=== PATIENT | male | born 1945 | race American Indian/Alaskan Native ===

== ENCOUNTER 2016-12-05 11:18 | Inpatient (IN) | payer MEDICARE ==
[2016-12-05] MEDS ORDERED: NACL 0.9% 1000 ML 1,000 ML IV ONE (11:47)
[2016-12-05 12:03] LABS: Basophils % (Auto) 0.4 % (0.0-1.8); Eosinophils % (Auto) 0.9 % (0.0-4.3); Hematocrit 37.5 % (35.5-45.6); Hemoglobin 11.8 gm/dl (11.8-15.2); Mean Corpuscular HGB Conc 31 % (32-34); Mean Corpuscular Hemoglobin 27 pg (28-32); Mean Corpuscular Volume 87 fl (84-94); Platelet Count 211 K/mm3 (140-440); Red Blood Count 4.33 M/mm3 (3.65-5.03); Red Cell Distribution Width 14.6 % (13.2-15.2); White Blood Count 6.9 K/mm3 (4.5-11.0)
[2016-12-05] MEDS ORDERED: NACL ONE (12:05)
--- NOTE | 2016-12-05 12:13 | XRay Report ---
Single view chest: History: Chest pain. Findings: Normal cardiomediastinal silhouette. Trachea is midline. No consolidation, pneumothorax or pleural effusion. Impression: No acute cardiopulmonary findings.
[2016-12-05 12:17] LABS: Alanine Aminotransferase 30 units/L (7-56); Albumin 3.8 g/dL (3.9-5); Alkaline Phosphatase 69 units/L (35-129); Anion Gap 20 mmol/L; BUN/Creatinine Ratio 21.81; Blood Urea Nitrogen 24 mg/dL (9-20); Calcium 9.3 mg/dL (8.4-10.2); Carbon Dioxide 24 mmol/L (22-30); Chloride 97.9 mmol/L (98-107); Glucose 171 mg/dL (75-100); Sodium 139 mmol/L (137-145); Total Protein 7.7 g/dL (6.3-8.2)
--- NOTE | 2016-12-05 12:26 | Emergency Department Report ---
ED Syncope HPI - General Chief Complaint: Nausea/Vomiting/Diarrhea Stated Complaint: EMESIS Time Seen by Provider: 12/05/16 11:45 Source: family - History of Present Illness Timing/Prior Episodes: no prior history Precipitating Factors: Positive: diaphoresis, lightheadedness, nausea. Negative : blurred vision, confusion, injury, pain, recent head trauma, rapid heart beat Loss of Consciousness: brief (seconds) Current Symptoms: back to normal, diaphoresis, dizziness, lightheadedness, nausea, weakness. denies: blurred vision, chest pain, headache, injury, loss of bladder control, loss of bowel control, motionless, pale, shallow/rapid breathing, weak/absent pulse - Related Data Allergies/Adverse Reactions: Allergies LUIS MIGUEL Inhibitors Adverse Reaction (Severe, Unverified 03/28/16 05:49) SEVERE LIP SWELLING IV CONTRAST DYE Adverse Reaction (Uncoded 03/28/16 05:49) Hives Home Medications: Ambulatory Orders Amlodipine Bes/Olmesartan Med [Jd 10-40 mg] 1 tab PO DAILY 03/28/16 Aspirin EC [Aspirin Enteric Coated TAB] 81 mg PO DAILY 03/28/16 Atenolol 100 mg PO BID 03/28/16 Bimatoprost 0.01%(Nf) [Lumigan 0.01%(Nf)] 1 drop INTRAOCULA DAILY 03/28/16 Brimonidine Tartrate [Alphagan P 0.1%] 1 drop INTRAOCULA BID 03/28/16 Clonidine HCl 0.3 mg PO BID 03/28/16 Olmesartan/Hydrochlorothiazide [Benicar HCT 20-12.5 mg] 1 tab PO DAILY 03/28/16 Tamsulosin HCl 0.4 mg PO DAILY 03/28/16 hydrALAZINE [Apresoline TAB] 100 mg PO TID 03/28/16 AtorvaSTATin [Lipitor] 40 mg PO QHS 12/05/16 Clopidogrel [Plavix] 75 mg PO QDAY 12/05/16 Metoprolol Xl [Metoprolol SUCCINATE ER TAB] 25 mg PO Q12H 12/05/16 Sitagliptin Phos/Metformin HCl [Janumet 50-500 mg Tablet] 1 each PO BID ED Review of Systems ROS: Stated complaint: EMESIS Other details as noted in HPI Comment: All other systems reviewed and negative ED Past Medical Hx - Past Medical History Previous Medical History?: Yes Hx Hypertension: Yes Hx CVA: Yes Hx Heart Attack/AMI: Yes (6 months ago) Hx Diabetes: Yes (diabetic oral medication) Hx of Cancer: Yes (prostate cancer) Hx Arthritis: Yes Hx HIV: No Additional medical history: radiation treatment 3 months ago - Surgical History Past Surgical History?: No - Social History Smoking Status: Never Smoker Substance Use Type: None - Medications Home Medications: Home Medications Medication Instructions Recorded Confirmed Last Taken Type Amlodipine Bes/Olmesartan Med 1 tab PO DAILY 03/28/16 12/05/16 12/05/16 History [Jd 10-40 mg] Aspirin EC [Aspirin Enteric Coated 81 mg PO DAILY 03/28/16 12/05/16 12/05/16 History TAB] Atenolol 100 mg PO BID 03/28/16 12/05/16 12/05/16 History Bimatoprost 0.01%(Nf) [Lumigan 1 drop INTRAOCULA DAILY 03/28/16 12/05/16 History 0.01%(Nf)] 1 drop Brimonidine Tartrate [Alphagan P 1 drop INTRAOCULA BID 03/28/16 12/05/16 History 0.1%] 1 drop Clonidine HCl 0.3 mg PO BID 03/28/16 12/05/16 12/05/16 History Olmesartan/Hydrochlorothiazide 1 tab PO DAILY 03/28/16 12/05/16 12/05/16 History [Benicar HCT 20-12.5 mg] Tamsulosin HCl 0.4 mg PO DAILY 03/28/16 12/05/16 12/05/16 History hydrALAZINE [Apresoline TAB] 100 mg PO TID 03/28/16 12/05/16 12/04/16 History AtorvaSTATin [Lipitor] 40 mg PO QHS 12/05/16 12/05/16 12/04/16 History Clopidogrel [Plavix] 75 mg PO QDAY 12/05/16 12/05/16 12/05/16 History Metoprolol Xl [Metoprolol 25 mg PO Q12H 12/05/16 12/05/16 12/05/16 History SUCCINATE ER TAB] Sitagliptin Phos/Metformin HCl 1 each PO BID 12/05/16 12/05/16 12/05/16 History [Janumet 50-500 mg Tablet] ED Physical Exam - General Limitations: No Limitations General appearance: alert, in no apparent distress - Head Head exam: Present: atraumatic, normocephalic - Eye Eye exam: Present: normal appearance, PERRL - ENT ENT exam: Present: normal exam, normal orophraynx, mucous membranes moist - Neck Neck exam: Present: normal inspection - Respiratory Respiratory exam: Present: normal lung sounds bilaterally, respiratory distress , rhonchi, decreased breath sounds - Cardiovascular Cardiovascular Exam: Present: regular rate, normal rhythm. Absent: systolic murmur, diastolic murmur, rubs, gallop - GI/Abdominal GI/Abdominal exam: Present: soft, normal bowel sounds - Rectal Rectal exam: Present: deferred - Extremities Exam Extremities exam: Present: normal inspection - Back Exam Back exam: Present: normal inspection - Neurological Exam Neurological exam: Present: alert, oriented X3 - Psychiatric Psychiatric exam: Present: normal affect, normal mood - Skin Skin exam: Present: warm, dry, intact, normal color. Absent: rash ED Course Vital Signs 12/05/16 12/05/16 13:00 13:03 Temperature 97.8 F Pulse Rate 69 Respiratory 24 24 Rate Blood Pressure 122/68 [Right] O2 Sat by Pulse 96 96 Oximetry ED Medical Decision Making - Lab Data Result diagrams: 12/05/16 11:41 12/05/16 11:41 - EKG Data -: EKG Interpreted by Me - EKG Data Interpretation: no acute changes - Radiology Data Radiology results: report reviewed, image reviewed - Medical Decision Making will need admission for respiratory distress, cxr negative , V/Q scan negative for PE/ althoug lovenox given , cultures ordered and abx given , with normal WBC , extensive cardiac history will need cardiology. Critical Care Time: Yes Critical care time in (mins) excluding proc time.: 35 Critical care attestation.: If time is entered above; I have spent that time in minutes in the direct care of this critically ill patient, excluding procedure time. ED Disposition Clinical Impression: Coronary angioplasty status, Respiratory distress, Pneumonia, Syncope Disposition: OP ADMIT IP TO THIS HOSP Is pt being admited?: Yes Does the pt Need Aspirin: No Condition: Fair Time of Disposition: 15:47
[2016-12-05 12:42] LABS: INR 0.97 (0.87-1.13)
[2016-12-05 12:43] LABS: Partial Thromboplastin Time < 20.0 Sec. (24.2-36.6)
[2016-12-05 12:59] LABS: Urine Drugs of Abuse Note Disclamer
[2016-12-05 13:08] LABS: Bilirubin,Urine NEG (Negative); Blood,Urine NEG (Negative); Ketones,Urine NEG (Negative); Leukocyte Esterase,Urine NEG (Negative); Mucus,Urine FEW /HPF; Nitrite,Urine NEG (Negative); Protein,Urine <15 mg/dL mg/dL (Negative); Urobilinogen,Urine < 2.0 mg/dL (<2.0)
--- NOTE | 2016-12-05 13:18 | Admit Criteria Form ---
Admission Criteria Documentation: GENERAL ADMISSION CRITERIA (Place 'X' for any and all applicable criteria): Admission is indicated for ANY ONE of the following: [ X]I. Hemodynamic instability as indicated by ANY ONE of the following(1)(2 )(3)(4)(5): [ ]a) Vital sign abnormality not readily corrected by appropriate treatment within 12 to 24 hours indicated by ANY ONE of the following: [ ]i) Hypotension [ ]ii) Symptomatic Tachycardia unresponsive to treatment (eg , analgesia, fluids, sedation as indicated) [ ]iii) Orthostatic vital sign changes unresponsive to treatment (eg, fluids) [ X]b) Vital sign abnormality that is severe indicated by ANY ONE of the following: [X]i) Inadequate perfusion indicated by ANY ONE of the following: [ X]1) Lactic acidosis (greater than 2 mmol/L) [ ]2) New abnormal capillary refill (greater than 3 seconds) [ ]3) Other metabolic acidosis (arterial pH less than 7.35) not otherwise explained [ ]4) Reduced urine output [ ]5) Altered mental status [ ]6) Myocardial Ischemia [ ]v) Mean arterial pressure[A] less than 60 mm Hg [ ]vi) Mean arterial pressure[A] less than 70 mm Hg after 30 minutes of appropriate treatment (eg, fluid resuscitation) [ ]vii) IV inotropic or vasopressor medication required to maintain adequate blood pressure or perfusion [ ]viii) Sustained heart rate greater than 120 beats per minute in adult or child 6 years or older[B]] [ ]II. Hypertension requiring inpatient treatment as indicated by ANY ONE of the following(6)(7)(8): [ ]a) SBP greater than 220 mm Hg or DBP greater than 120 mm Hg despite treatment [ ]b) SBP greater than 140 mm Hg or DBP greater than 100 mm Hg with evidence of acute end organ damage as indicated by ANY ONE of the following: [ ]i) Encephalopathy [ ]ii) Acute renal failure as indicated by new onset of ANY ONE of the following(9)(10)(11)(12)(13): [ ]1) A 3-fold rise in serum creatinine from baseline [ ]2) Serum creatinine greater than 4 mg/dL ( 354 micromoles/L) with acute rise greater than 0.5 mg/dL (44.2 micromoles/L) [ ]3) Reduction of more than 75% in estimated glomerular filtration rate from baseline [ ]4) Estimated glomerular filtration rate less than 35 mL/min/1.73m2 (0.59 mL/sec/1.73m2) in child up to 18 years of age [ ]5) Cessation of urine output indicated by ALL of the following: [ ]A. Adequate volume status [ ]B. Inadequate urine output as indicated by ANY ONE of the following: [ ]a. Urine output less than 0.3 mL/kg/hr for 24 hours [ ]b. Anuria (urine output less than 0.1 mL/kg/hr) for 12 hours [ ]iii) Aortic dissection [ ]iv) Myocardial ischemia [ ]v) Left ventricular heart failure [ ]vi) Retinal hemorrhage [ ]vii) Other significant finding [ ]c) Hypertension in child requiring inpatient treatment as indicated by ALL of the following(14)(15)(16): [ ]i) Outpatient treatment not effective, not available, or not appropriate [ ]ii) SBP or DBP greater than 95th percentile for age [ ]iii) Evidence of acute end organ damage as indicated by ANY ONE of the following: [ ]1) Altered mental status [ ]2) Acute renal failure as indicated by new onset of ANY ONE of the following(9)(10)(11)(12)(13): [ ]A. A 3-fold rise in serum creatinine from baseline [ ]B. Serum creatinine greater than 4 mg/dL (354 micromoles/L) with acute rise greater than 0.5 mg/dL (44.2 micromoles/L) [ ]C. Reduction of more than 75% in estimated glomerular filtration rate from baseline [ ]D. Estimated glomerular filtration rate less than 35 mL/min/1.73m2 (0.59 mL/sec/1.73m2)in child up to 18 years of age [ ]E. Cessation of urine output indicated by ALL of the following: [ ]a. Adequate volume status [ ]b. Inadequate urine output as indicated by ANY ONE of the following: [ ]1) Urine output less than 0.3 mL/kg/hr for 24 hours [ ]2) Anuria (urine output less than 0.1 mL/kg/hr) for 12 hours [ ]3) Severe headache [ ]4) Visual disturbance [ ]5) Retinal hemorrhage [ ]6) Other significant finding [ ]III. Acute cardiac or peripheral ischemia as indicated by ANY ONE of the following: [ ]a) Acute coronary syndrome(17)(18) [ ]b) Acute peripheral ischemia (eg, pulseless, cool, mottled, or cyanotic extremity)(19) [ ]IV. Cardiac arrhythmias or findings of immediate concern indicated by ANY ONE of the following(20)(21): [ ]a) Heart rhythms that are inherently dangerous or unstable indicated by ANY ONE of the following(22)(23)(24): [ ]i) Resuscitated ventricular fibrillation or cardiac arrest [ ]ii) Ventricular escape rhythm [ ]iii) Sustained ventricular tachycardia (30 seconds or more of ventricular rhythm at greater than 100 beats per minute) [ ]iv) Nonsustained ventricular tachycardia and ANY ONE of the following: [ ]1) Suspected cardiac ischemia as cause or consequence of ventricular tachycardia [ ]2) In setting of acute myocarditis [ ]b) Unstable cardiac conduction defects indicated by ANY ONE of the following(24)(25)(26): [ ]i) Type II second-degree atrioventricular block [ ]ii) Third-degree atrioventricular block [ ]iii) New-onset left bundle branch block with suspected myocardial ischemia [ ]c) Any heart rhythm and ANY ONE of the following(22)(23)(27)(28)( 29): [ ] i) Continuous long-term ECG monitoring needed (eg, initiation of drug requiring monitoring for more than 24 hours) [ ] ii) Patient has automatic implanted cardioverter defibrillator that is repeatedly firing, malfunctioning, or in need of immediate adjustment of settings beyond the scope of ambulatory or observation care. [ ]d) Heart rhythms of concern due to ANY ONE of the following: [ ]i) Hypotension [ ]ii) Respiratory distress [ ]iii) Association with other significant symptoms (eg, bradycardia with syncope or ongoing dizziness, supraventricular tachycardia with chest pain) (27)(28) (30) [ ] V. Severe heart failure as indicated by ANY ONE of the following ( 31)(32): [ ]a) Respiratory distress [ ]b) Hypotension [ ]c) Anasarca (refractory to outpatient therapy) [ ]d) Cardiac arrhythmias of immediate concern [ ]e) Myocardial ischemia [ ]. Respiratory abnormalities, including ANY ONE of the following(33)(34) (35)(36): [ ]a) Respiratory rate greater than 30 breaths per minute unresponsive to treatment [A] [ ]b) New saturation of arterial oxygen less than 90% [ ]c) New partial pressure of carbon dioxide greater than 44 mm Hg ( 5.9 kPa) [ ]d) Supplemental oxygen or respiratory treatments needed that are new or not performable at other levels of care [ ]e) New-onset cyanosis [ ]f) Inability to protect airway [ ]g) Chronic lung disease with severe deterioration (not responsive to emergency and observation care treatment as appropriate) as indicated by ANY ONE of the following(34)(36 ): [ ]i) SaO2 5% below baseline in patient with chronic hypoxemia [ ]ii) New requirement for supplemental oxygen to keep SaO2 at baseline or acceptable level [ ]iii) Required supplemental oxygen performable only in acute inpatient setting [ ]iv) Severe airflow or ventilation abnormalities [ ]v) Previously mobile patient unable to walk between rooms [ ]vi Inability to eat or sleep due to dyspnea [ ]vii) Rapid rate of exacerbation onset [ ]viii) Altered mental status ]VII. Severe airflow or ventilation abnormalities (not responsive to emergency and observation care treatment as appropriate) as indicated by ANY ONE of the following(33)(34)(35)(37): [ ]a) PCO2 greater than 42 mm Hg (5.6 kPa) and pH less than 7.35 (new ) [ ]b) Documented PCO2 increased more than 5 mm Hg (0.7 kPa) from disease baseline [ ]c) Airflow measurements [B] less than 60% of previous best or predicted (eg, peak expiratory flow rate less than 300 L/minute) despite intensive emergent treatment [C] [ ]d) Required respiratory treatments that are performable only in acute inpatient setting [ ]VIII. Impending or actual respiratory arrest ( Also use Respiratory Failure GRG for severe respiratory disease and long-term mechanical ventilation patients) [ ]IX. Neurologic abnormalities, including ANY ONE of the following: [ ]a) New findings that suggest ANY ONE of the following: [ ]i) TELEVISION E[employer]MENT [employer]ATOR infection(38) [ ]ii) Cerebral bleeding, ischemia, or vasospasm(39)(40) [ ]iii) Increased intracranial pressure, hydrocephalus, or cerebral edema(41)(42)(43) [ ]iv) Spinal cord injury(44) [ ]b) Uncontrolled seizures(45) [ ]c) New-onset coma (eg, Danisha coma scale score less than 9) or unexplained abnormal mental status (eg, Varna coma scale score less than 14) [D](41)(46)(47) [ ]X. New-onset severe neurologic findings requiring inpatient care; examples include(42)(48)(49): [ ]a) Papilledema [ ]b) Cerebral edema [ ]c) Mass effect on CT scan [ ]XI. Suspected acute intra-abdominal process with peritoneal signs, abdominal mass, or similar findings (50)(51)(52) [ ]XII. Severe physiologic disorder remaining after emergency or observation level care (as appropriate) as indicated by ANY ONE of the following (53): [ ]a) Significant dehydration [ ]b) Diabetic ketoacidosis [ ]c) Hyperglycemic hyperosmolar state (eg, osmolality greater than 320 mOsm/kg (mmol/kg) [ ]d) Hypoglycemia [ ]e) Other (new) acid-base disorder with pH less than 7.35 or greater than 7.5(54) [ ]f) Thyroid storm (55) [ ]g) Myxedema coma (55) [ ]XIII. Abdominal abnormalities with ANY ONE of the following(56)(57): [ ]a) Absent bowel sounds with complete ileus [ ]b) Signs of intestinal obstruction or peritonitis [E] [ ]c) Nausea and vomiting that cannot be controlled with outpatient or observation care [ ]XIV. Acute renal failure as indicated by new onset of ANY ONE of the following(9)(10)(11)(12)(13): [ ]a) A 3-fold rise in serum creatinine from baseline [ ]b) Serum creatinine greater than 4 mg/dL (354 micromoles/L) with acute rise greater than 0.5 mg/dL (44.2 micromoles/L) [ ]c) Reduction of more than 75% in estimated glomerular filtration rate from baseline [ ]d) Estimated glomerular filtration rate less than 35 mL/min/ 1.73m2 (0.59 mL/sec/1.73m2) in child up to 18 years of age [ ]e) Cessation of urine output indicated by ALL of the following: [ ]i) Adequate volume status [ ]ii) Inadequate urine output as indicated by ANY ONE of the following: [ ]1) Urine output less than 0.3 mL/kg/hr for 24 hours [ ]2) Anuria (urine output less than 0.1 mL/kg/hr) for 12 hours [ ]XV. Significant uremic complications as indicated by ANY ONE of the following(58)(59)(60): [ ]a) Outpatient therapy is ineffective or not feasible for ANY ONE of the following: [ ]i) Severe heart failure [ ]ii) Severehypertension [ ]iii) Pleural effusion [ ]iv) Pericarditis or pericardial effusion [ ]b) Cardiac arrhythmias of immediate concern [ ]c) Intractable nausea or vomiting [ ]d) Recurrent seizures [ ]e) Encephalopathy [ ]f) Bleeding abnormalities (eg, platelet dysfunction) with active (eg, gastrointestinal) bleeding [ ]g) Dialysis indicated before long-term access or ambulatory arrangements can be made [ ]h) Significant metabolic or electrolyte abnormalities (eg, severe acidosis or hyperkalemia) [ ]XVI. High fever or other high-risk infection situation as indicated by ANY ONE of the following(61)(62)(63)(64): [ ]a) Outpatient and observation care antimicrobial treatment unavailable, not effective, or not appropriate [ ]b) Documented bacteremia [ ]c) Temperature greater than 40.5 degrees C (104.9 degrees F) ( oral) [ ]d) Temperature greater than 39.5 degrees C (103.1 degrees F) ( oral) or less than 36 degrees C (96.8 degrees F) (rectal) that does not respond to e treatment and observation care [ ] XVII. Temperature less than 95 degrees F (35 degrees C)(rectal)(65) [ ] XVIII. Severe nutritional abnormalities as indicated by ALL of the following (66)(67): [ ]a) Inability to tolerate or establish sufficient oral or other enteral nutrition in outpatient setting [ ]b) Parenteral nutrition regimen need that must be implemented on inpatient basis [ ] XIX. Severe electrolyte abnormalities indicated by ALL of the following(68) (69)(70): [ ]a) Electrolytes and associated findings are not as expected for patient baseline or acceptable treatment effects. [ ]b) Severe abnormalities indicated by ANY ONE of the following: [ ]i) Sodium less than 130 mEq/L (mmol/L) (new) [ ]ii)Sodium less than 135 mEq/L (mmol/L) with ANY ONE of the following: [ ]1) Uncorrectable (to near normal or chronic baseline) after trial of outpatient and emergency treatment [ ]2) Altered mental status [ ]3) Seizures [ ]4) Severe medical etiology requiring inpatient management (eg, heart failure, hypovolemia) [ ]iii) Sodium greater than 155 mEq/L (mmol/L) [ ]iv) Sodium greater than 150 mEq/L (mmol/L) with ANY ONE of the following: [ ]1) Uncorrectable (to near normal or chronic baseline) with outpatient and emergency treatment [ ]2) Altered mental status [ ]3) Seizures [ ]4) Severe medical etiology (eg, hypovolemia, diabetes insipidus) [ ]v) Potassium less than 2.5 mEq/L (mmol/L) despite outpatient and emergency treatment [ ]vi) Potassium less than 3 mEq/L (mmol/L) with ANY ONE of the following: [ ]1) Weakness [ ]2) Cardiac abnormality (eg, arrhythmia, conduction disturbance) [ ]3) Cardiac ischemia [ ]4) Ileus [ ]5) Ongoing medical cause requiring inpatient management (eg, acute renal wasting or SIADH) [ ]6) Other severe symptoms [ ]vii) Potassium greater than 6.5 mEq/L (mmol/L) [ ]viii) Potassium greater than 5 mEq/L (mmol/L) with ANY ONE of the following: [ ]1) Uncorrectable (to near normal or chronic baseline) with outpatient and emergency treatment [ ]2) Severe ECG findings [F] [ ]3) Acute worsening of renal failure (creatinine greater than 2.5 mg/dL (221 micromoles/L) or significant elevation for age and size) [ ]4) Severe weakness [ ]5) Severe medical etiology (eg, hemolysis, infection, drug overdose) [ ]ix) Calcium less than 7 mg/dL (1.75 mmol/L) despite outpatient and emergency treatment (72) [ ]x) Calcium less than 8 mg/dL (2 mmol/L) with significant symptoms or findings; examples include(72): [ ]1) Altered mental status [ ]2) Muscle spasms [ ]3) Seizures [ ]4) Breathing difficulty [ ]5) Cardiac abnormality (eg, arrhythmia or conduction disturbance) [ ]xi) Calcium greater than 14 mg/dL (3.5 mmol/L)(72) [ ]xii) Calcium greater than 12 mg/dL (3 mmol/L) with ANY ONE of the following(72): [ ]1) Uncorrectable (to near normal or chronic baseline) with outpatient and emergency treatment [ ]2) Significant dehydration or hypovolemia as indicated by ALL of the following(70)(73)(74): [ ]A. Not resolved with initial treatments [ ]B. Clinically significant dehydration as indicated by ANY ONE of the following: [ ]a. Vomiting refractory to outpatient treatment (ie, precluding oral rehydration) [ ]b. Inability to drink [ ]c. Hypernatremia or other electrolyte abnormality unable to be corrected with outpatient and emergency treatment [ ]d. Failure to remain hydrated with outpatient therapy [ ]e. Reduced urine output [ ]f. Hypotension [ ]g. Serious cause for dehydration requiring acute hospitalization (eg, bowel obstruction, increased intracranial pressure, infectious cause) [ ]h. Child with ANY ONE of the following(75): [ ]1) Severe abdominal tenderness [ ]2) Adequate care not available at home [ ]3) Severe dehydration ( greater than 9% loss of body weight) [ ]4) Significant symptoms or findings; examples include: [ ]A. Altered mental status [ ]B. Cardiac abnormality (eg, arrhythmia, conduction disturbance) [ ]C. Malignant etiology requiring inpatient treatment [ ]xiii) Phosphorus less than 1 mg/dL (0.32 mmol/L) [ ]xiv) Phosphorus less than 1.5 mg/dL (0.48 mmol/L) with ANY ONE of the following: [ ]1) Patient unresponsive to outpatient and emergency treatment [ ]2) Significant symptoms or findings; examples include: [ ]A. Weakness [ ]B. Altered mental status [ ]C. Breathing difficulty [ ]D. Seizures [ ]E. Rhabdomyolysis [ ]xv) Phosphorus greater than 10 mg/dL (3.2 mmol/L) [ ]xvi) Phosphorus greater than 4.5 mg/dL (1.45 mmol/L) (new) with ANY ONE of the following: [ ]1) Severe medical etiology (eg, crush injury, acute renal failure) [ ]2) Associated hypocalcemia with significant findings; examples include: [ ]A. Neurologic symptoms [ ]B. Altered mental status [ ]C. Muscle spasms [ ]D. Seizures [ ]E. Breathing difficulty [ ]F. Cardiac abnormality (eg, arrhythmia, conduction disturbance) [ ]xvii) Magnesium less than 1 mg/dL (0.41 mmol/L) [ ]xviii) Magnesium less than 1.5 mg/dL (0.62 mmol/L) with ANY ONE of the following: [ ]1) Patient unresponsive to outpatient and emergency treatment [ ]2) Associated hypocalcemia with significant findings; examples include: [ ]A. Altered mental status [ ]B. Muscle spasms [ ]C. Seizures [ ]D. Breathing difficulty [ ]E. Cardiac abnormality (eg, arrhythmia , conduction disturbance) [ ]3) Associated hypokalemia (potassium less than 3 mEq/L (mmol/L)) with risk of arrhythmia [ ]xix) Magnesium greater than 4 mEq/L (2 mmol/L) [ ]xx) Magnesium greater than 2.5 mEq/L (1.25 mmol/L) with significant symptoms or findings; examples include: [ ]1) Weakness [ ]2) Altered mental status [ ]3) Cardiac abnormality (eg, arrhythmia, conduction disturbance) [ ]4) Breathing difficulty [ ]5) Severe medical etiology (eg, renal failure, hypovolemia) [ ]xxi) Uric acid greater than 20 mg/dL (1190 micromoles/L)(76) [ ]xxii) Uric acid greater than 8 mg/dL (476 micromoles/L) with significant symptoms or findings of tumor lysis syndrome; examples include(76): [ ]1) Creatinine greater than 1.5 times upper limit of normal [ ]2) Cardiac abnormality (eg, arrhythmia, conduction disturbance) [ ]3) Seizure [ ]XX. Acute blood loss causing significant abnormality as indicated by ANY ONE of the following(77)(78): [ ]a) Hemoglobin less than 10 g/dL (100 g/L) (not baseline) [ ]b) Hematocrit less than 30% (0.30) (not baseline) [ ]c) Repeat hematocrit decreased more than 2% (0.02) [ ]d) Uncontrolled bleeding [ ]XXI. Severe anemia indicated by ANY ONE of the following(78)(79): [ ]a) Altered mental status [ ]b) Chest pain [ ]c) Exertional dyspnea [ ]d) Syncope [ ]e) Other findings suggesting inadequate perfusion [ ]f) Treatment with transfusion or volume replacement is ineffective at resolving ANY ONE of the following [G]: [ ]i) Tachycardia for age [ ]ii) Orthostatic vital sign changes as indicated by ANY ONE of the following(80): [ ]1) Fall in SBP of 20 mm Hg or more 1 to 3 minutes after patient sits or stands from recumbent position [ ]2) Fall in DBP of 10 mm Hg or more 1 to 3 minutes after patient sits or stands from recumbent position [ ]XXII. High-risk low platelet count as indicated by ANY ONE of the following( 81)(82): [ ]a) Severe or life-threatening bleeding (eg, intracranial, major gastrointestinal, or extensive mucosal bleeding), with any reduced platelet count [ ]b) Platelet count less than 20,000/mm3 (20 x109/L) with any active bleeding [ ]c) Platelet count less than 10,000/mm3 (10 x109/L) with minor purpura or petechiae [ ]d) Platelet count less than 5000/mm3 (5 x109/L) [ ]e) Low platelet count with hemolytic anemia [ ]XXIII. Disseminated intravascular coagulation(77)(83) [ ]XXIV. Severe adverse drug or systemic toxin reaction requiring inpatient treatment; examples include(84)(85): [ ]a) Serotonin syndrome(86) [ ]b) Neuroleptic malignant syndrome(86) [ ]c) Cholinergic syndrome with severe symptoms (eg, bronchorrhea, weakness, mental status changes, seizures) [ ]d) Sympathetic syndrome with severe symptoms (eg, seizures, mental status changes, cardiac dysrhythmias) [ ]e) Anticholinergic syndrome [ ]XXV. Severe pain requiring acute inpatient management as indicated by ALL of the following (87)(88)(89): [ ]a) Continuous or frequent (eg, every 2 to 4 hours) parenteral analgesics required [H] [ ]b) Rapid improvement expected from treatment or acute intervention (eg, surgery, anesthesia procedure) [ ]XXVI.Severe behavioral health issues judged unmanageable at a lower level of care (eg, residential) in a patient who is ANY ONE of the following(91) [ ]a) Acutely suicidal [ ]b) A danger to self (eg, self-mutilating or suicidal behavior) [ ]c) A danger to others (eg, assaultive or homicidal behavior) [ ]d) Incapacitated because of grave disability (eg, inability to provide for self at lower level of care) (92) [ ]XXVII. Inpatient monitoring needed; examples include(1)(3)(87)(93)(94)(95)(96 ): [ ]a) Vital signs, neurologic signs, or vascular checks more frequently than every 4 hours [ ]b) Cardiac or respiratory monitoring beyond the scope (eg, over 24 hours) of observation care [ ]c) Pulmonary artery catheter monitoring [ ]d) Suspected compartment syndrome(97) (98) [ ]e) Cerebral bleeding, hydrocephalus, or vasospasm monitoring [ ]f) Increased intracranial pressure or cerebral edema monitoring [ ]g) monitoring [ ]XXVIII. Treatment requiring inpatient care; examples include: [ ]a) IV fluid to replace significant ongoing losses (greater than 3 L/m2 per day)(53) [ ]b) High concentration oxygen (greater than 40%)(33)(99)(100) [ ]c) Frequent respiratory therapy (more frequently than every 4 hours) to maintain airflow rates greater than 60% of baseline(33)(99)(100) [ ]d) Epidural analgesia(87) [ ]e) IV anticoagulation, vasoactive, or antiarrhythmic medication(19 )(23) [ ]f) Acute thrombolytics (generally require 24 hours of observation )(101)(102) [ ]XXIX. Emergency procedures needed; examples include: [ ]a) Emergency inpatient surgery [ ]b) Temporary pacemaker placement(103) [ ]c) Chest tube placement with active evacuation (eg, suction, drainage)(104) [ ]d) Emergent cardioversion(105) [ ]e) Emergent cardiac or vascular procedures (eg, cardiac catheterization, angioplasty) (17)(18) [ ]f) Emergent dialysis access placement and institution(10)(106) [ ]g) Emergent pericardiocentesis(107) [ ]h) Emergent plasmapheresis or leukapheresis(83) [ ]i) Emergent tracheostomy The original [employer] content created by [employer] has been revised. The portions of the content which have been revised are identified through the use of italic text or in bold, and [employer] has neither reviewed nor approved the modified material. All other unmodified content is copyright [employer]. Please see references footnoted in the original [employer] edition 2016 Admission Criteria Met: Yes
[2016-12-05] MEDS ORDERED: LOVENOX SUB-Q ONE (14:42)
--- NOTE | 2016-12-05 14:45 | History and Physical Report ---
History of Present Illness Chief complaint: weak, passed out History of present illness: 71 YO Male with HTN, CVA, Severe CAD not amenable to stent placement, [place], DM, CaP, OA presents to ED for evaluation. Pt unable to provide history, but history is taken from who is at bedside during exam and interview. Pt states that patient was outside working in the yard, when she noticed that he was sitting on the front steps with his head back. Pt went outside and found patient unconscious, with vomitus bubbling in his mouth. Pt was not arousable, so turned him over on his side so he "would not choke to on his vomit". EMS notified, and patient transferred to ED for evaluation. Pt denies reports of fever, chills, CP, Palpitations, NVD, vertigo, seizures, productive cough, or recent ill contacts. Past History Past Medical History: acute GA, arthritis, CAD, cancer, hypertension, stroke Past Surgical History: No surgical history, Other (reviewed) Social history: , lives with family. denies: smoking, alcohol abuse, prescription drug abuse Family history: CAD, hypertension Medications and Allergies Allergies Allergy/AdvReac Type Severity Reaction Status Date / Time LUIS MIGUEL Inhibitors AdvReac Severe SEVERE LIP Unverified 03/28/16 05:49 SWELLING IV CONTRAST DYE AdvReac Hives Uncoded 03/28/16 05:49 Home Medications Medication Instructions Recorded Confirmed Last Taken Type Amlodipine Bes/Olmesartan Med 1 tab PO DAILY 03/28/16 12/05/16 12/05/16 History [Jd 10-40 mg] Aspirin EC [Aspirin Enteric Coated 81 mg PO DAILY 03/28/16 12/05/16 12/05/16 History TAB] Atenolol 100 mg PO BID 03/28/16 12/05/16 12/05/16 History Bimatoprost 0.01%(Nf) [Lumigan 1 drop INTRAOCULA DAILY 03/28/16 12/05/16 History 0.01%(Nf)] 1 drop Brimonidine Tartrate [Alphagan P 1 drop INTRAOCULA BID 03/28/16 12/05/16 History 0.1%] 1 drop Clonidine HCl 0.3 mg PO BID 03/28/16 12/05/16 12/05/16 History Olmesartan/Hydrochlorothiazide 1 tab PO DAILY 03/28/16 12/05/16 12/05/16 History [Benicar HCT 20-12.5 mg] Tamsulosin HCl 0.4 mg PO DAILY 03/28/16 12/05/16 12/05/16 History hydrALAZINE [Apresoline TAB] 100 mg PO TID 03/28/16 12/05/16 12/04/16 History AtorvaSTATin [Lipitor] 40 mg PO QHS 12/05/16 12/05/16 12/04/16 History Clopidogrel [Plavix] 75 mg PO QDAY 12/05/16 12/05/16 12/05/16 History Metoprolol Xl [Metoprolol 25 mg PO Q12H 12/05/16 12/05/16 12/05/16 History SUCCINATE ER TAB] Sitagliptin Phos/Metformin HCl 1 each PO BID 12/05/16 12/05/16 12/05/16 History [Janumet 50-500 mg Tablet] Review of Systems ROS unobtainable: due to mental status Exam - Constitutional Vitals: Temp Pulse Resp BP Pulse Ox 97.8 F 69 24 122/68 96 12/05/16 13:03 12/05/16 13:03 12/05/16 13:03 12/05/16 13:03 12/05/16 13:03 General appearance: Present: severe distress - Neck Neck: Present: supple, normal ROM - Respiratory Respiratory effort: labored Respiratory: bilateral: diminished, rhonchi - Cardiovascular Rhythm: other (tachycardic) Heart Sounds: Present: S1 & S2. Absent: rub, click - Extremities Extremities: pulses symmetrical, No edema Peripheral Pulses: within normal limits - Abdominal General gastrointestinal: Present: soft, non-tender, non-distended, normal bowel sounds Male genitourinary: Present: normal - Integumentary Integumentary: Present: clear, dry, decreased turgor - Musculoskeletal Musculoskeletal: generalized weakness - Psychiatric Psychiatric: no intact judgment & insight, no memory intact - Neurologic Neurologic: moves all extremities, no gait normal Results - Labs CBC & Chem 7: 12/05/16 11:41 12/05/16 11:41 Labs: Abnormal lab results 12/05/16 12/05/16 12/05/16 Range/Units 11:41 11:41 11:41 MCH 27 L (28-32) pg MCHC 31 L (32-34) % Lares % (Auto) 7.5 H (0.0-7.3) % Lymph # 1.0 L (1.2-5.4) K/mm3 Seg Neutrophils % 76.4 H (40.0-70.0) % APTT (24.2-36.6) Sec. D-Dimer (0-234) ng/mlDDU Potassium 3.0 L (3.6-5.0) mmol/L Chloride 97.9 L (98-107) mmol/L BUN 24 H (9-20) mg/dL Glucose 171 H (75-100) mg/dL Lactic Acid 4.00 H* (0.7-2.0) mmol/L Albumin 3.8 L (3.9-5) g/dL Salicylates (2.8-20.0) mg/dL 12/05/16 12/05/16 12/05/16 Range/Units 11:41 12:08 14:11 MCH (28-32) pg MCHC (32-34) % Lares % (Auto) (0.0-7.3) % Lymph # (1.2-5.4) K/mm3 Seg Neutrophils % (40.0-70.0) % APTT < 20.0 L (24.2-36.6) Sec. D-Dimer 565.35 H (0-234) ng/mlDDU Potassium (3.6-5.0) mmol/L Chloride (98-107) mmol/L BUN (9-20) mg/dL Glucose (75-100) mg/dL Lactic Acid 4.60 H* (0.7-2.0) mmol/L Albumin (3.9-5) g/dL Salicylates < 0.3 L (2.8-20.0) mg/dL Assessment and Plan - Patient Problems (1) Aspiration pneumonia due to gastric secretions Current Visit: Yes Status: Acute Qualifiers: Laterality: L Lung location: L Plan to address problem: Iv abx, supportive care, ABG, supplemental oxygen, nebs, IVF, NIPPV as clinically indicated, pulmonary toilet, pulmonary consulted. The high probability of a clinically significant, sudden or life threatening deterioration of the [pulmonary, cardiac] system(s) required my full and direct attention, intervention and personal management. The aggregate critical care time was [65] minutes. This time is in addition to time spent performing reported procedures but includes the following: [x] Data Review and interpretation [x] Patient assessment and monitoring of vital signs [x] Documentation [x] Medication orders and management (2) Encephalopathy Current Visit: Yes Status: Acute Plan to address problem: Toxic encephalopathy: supportive care, treat pneumonia, (3) Lactic acidosis Current Visit: Yes Status: Acute Plan to address problem: IVF, supportive care, (4) NSTEMI (non-ST elevated myocardial infarction) Current Visit: Yes Status: Acute Plan to address problem: Cardiology consulted: admit to ICU, supportive care, (5) DVT prophylaxis Current Visit: Yes Status: Acute
--- NOTE | 2016-12-05 14:57 | Nuclear Medicine Report ---
Nuclear medicine ventilation perfusion scan. History: Chest pain. Findings: The ventilation study demonstrates heterogeneous activity in the lower two thirds of each lung field on the ventilation phase. Minimal heterogeneous pattern persists on the equilibrium phase and there is mild retained activity on the washout phase. The perfusion scan demonstrates a similar degree of heterogeneous activity pattern without specific segmental or subsegmental defects. Impression: Low probability of embolic disease with scintigraphic signs of COPD.
[2016-12-05] MEDS ORDERED: MILK OF MAGNESIA PO PRN (15:01)
[2016-12-05] MEDS ORDERED: DUONEB *Not for PRN Use IH (15:01)
[2016-12-05] MEDS ORDERED: ALUM-MAG HYDROX-SIMETH 200-200-20MG/5ML PO PRN (15:01)
[2016-12-05] MEDS ORDERED: DULCOLAX PR PRN (15:01)
[2016-12-05] MEDS ORDERED: VANCOMYCIN 1,250 MG in NACL 0.9% 250ML 250 ML IV ONE (15:45)
--- NOTE | 2016-12-05 15:55 | Consultation ---
History of Present Illness Consult date: 12/05/16 Consult reason: syncope History of present illness: This is a 71yr old male with multivessel coronary artery disease by cardiac cath done 9 months ago. He has chronic total occlusion of the distal circumflex with left to left collaterals to a medium sized terminal obtuse marginal. In addition, the mid right coronary artery contained a long segment of severe diffuse disease. Coronary angioplasty of the right coronary artery was attempted but unsuccessful due to tortuosity of the vessel. He was transferred to [facility] for possible bypass surgery but was considered a poor candidate for surgery. Medical therapy recommended. He presents to the emergency department with syncope. Patient reports he was cutting grass when became short of breath, diaphoretic, vomited then syncopized. Patient denies chest pain just prior to passing out. EMS was called and he was bought in for evaluation. His ECG shows a sinus rhythm with ST depression. Lab studies demonstrates hypokalemia with a potassium of 3.0, elevated d-dimer and lactic acidosis. Ventilation perfusion study reports low probability for PE Medications and Allergies Allergies Allergy/AdvReac Type Severity Reaction Status Date / Time LUIS MIGUEL Inhibitors AdvReac Severe SEVERE LIP Unverified 03/28/16 05:49 SWELLING IV CONTRAST DYE AdvReac Hives Uncoded 03/28/16 05:49 Home Medications Medication Instructions Recorded Confirmed Last Taken Type Amlodipine Bes/Olmesartan Med 1 tab PO DAILY 03/28/16 12/05/16 12/05/16 History [Jd 10-40 mg] Aspirin EC [Aspirin Enteric Coated 81 mg PO DAILY 03/28/16 12/05/16 12/05/16 History TAB] Atenolol 100 mg PO BID 03/28/16 12/05/16 12/05/16 History Bimatoprost 0.01%(Nf) [Lumigan 1 drop INTRAOCULA DAILY 03/28/16 12/05/16 History 0.01%(Nf)] 1 drop Brimonidine Tartrate [Alphagan P 1 drop INTRAOCULA BID 03/28/16 12/05/16 History 0.1%] 1 drop Clonidine HCl 0.3 mg PO BID 03/28/16 12/05/16 12/05/16 History Olmesartan/Hydrochlorothiazide 1 tab PO DAILY 1012/05/16 12/05/16 History [Benicar HCT 20-12.5 mg] Tamsulosin HCl 0.4 mg PO DAILY 03/28/16 12/05/16 12/05/16 History hydrALAZINE [Apresoline TAB] 100 mg PO TID 03/28/16 12/05/16 12/04/16 History AtorvaSTATin [Lipitor] 40 mg PO QHS 12/05/16 12/05/16 12/04/16 History Clopidogrel [Plavix] 75 mg PO QDAY 12/05/16 12/05/16 12/05/16 History Metoprolol Xl [Metoprolol 25 mg PO Q12H 12/05/16 12/05/16 12/05/16 History SUCCINATE ER TAB] Sitagliptin Phos/Metformin HCl 1 each PO BID 12/05/16 12/05/16 12/05/16 History [Janumet 50-500 mg Tablet] Active Meds: Active Medications Al Hydrox/Mg Hydrox/Simethicone (Alum-Mag Hydrox-Simeth [phone]/5ml) 30 ml PO Q4H PRN PRN Reason: Indigestion Albuterol/Ipratropium (Duoneb 0.5 Mg-3 Mg/3 Ml Soln) 1 ampul IH Q6HRT PRN PRN Reason: Wheezing Bisacodyl (Dulcolax) 10 mg MI QDAY PRN PRN Reason: constipation unrelieved by MOM Vancomycin HCl (Vancomycin/Ns 1 Gm/250 Ml) 1 gm in 250 mls @ 167.007 mls/hr IV ONCE ONE PRN Reason: Protocol Stop: 12/05/16 16:41 Piperacillin Sod/Tazobactam Sod (Zosyn/Ns 4.5gm/100ml) 4.5 gm in 100 mls @ 200 mls/hr IV Q8HR LORY PRN Reason: Protocol Sodium Chloride (Nacl 0.45%) 500 mls @ 50 mls/hr IV DIRECT LORY Vancomycin HCl 1,250 mg/ (Sodium Chloride) 275 mls @ 166.667 mls/hr IV ONCE.ED ONE Stop: 12/05/16 17:23 Magnesium Hydroxide (Milk Of Magnesia) 30 ml PO Q4H PRN PRN Reason: Constipation Vancomycin HCl (Vancomycin Pharmacy To Dose) 1 each IV PKCONSULT LORY PRN Reason: Protocol Physical Examination Vital Signs Resp Pulse Ox 24 96 12/05/16 13:00 12/05/16 13:00 General appearance: no acute distress HEENT: Positive: PERRL Neck: Positive: trachea midline Cardiac: Positive: Reg Rate and Rhythm Lungs: Positive: Decreased Breath Sounds Results 12/05/16 11:41 12/05/16 11:41 Cardiac Enzymes 12/05/16 Range/Units 11:41 AST 22 (5-40) units/L Coagulation 12/05/16 Range/Units 12:08 PT 13.4 (12.2-14.9) Sec. INR 0.97 (0.87-1.13) APTT < 20.0 L (24.2-36.6) Sec. CBC 12/05/16 Range/Units 11:41 WBC 6.9 (4.5-11.0) K/mm3 RBC 4.33 (3.65-5.03) M/mm3 Hgb 11.8 (11.8-15.2) gm/dl Hct 37.5 (35.5-45.6) % Plt Count 211 (140-440) K/mm3 Lymph # 1.0 L (1.2-5.4) K/mm3 Mitchell # 0.5 (0.0-0.8) K/mm3 Eos # 0.1 (0.0-0.4) K/mm3 Baso # 0.0 (0.0-0.1) K/mm3 Comprehensive Metabolic Panel 12/05/16 Range/Units 11:41 Sodium 139 (137-145) mmol/L Potassium 3.0 L (3.6-5.0) mmol/L Chloride 97.9 L (98-107) mmol/L Carbon Dioxide 24 (22-30) mmol/L BUN 24 H (9-20) mg/dL Creatinine 1.1 (0.8-1.5) mg/dL Glucose 171 H (75-100) mg/dL Calcium 9.3 (8.4-10.2) mg/dL AST 22 (5-40) units/L ALT 30 (7-56) units/L Alkaline Phosphatase 69 (35-129) units/L Total Protein 7.7 (6.3-8.2) g/dL Albumin 3.8 L (3.9-5) g/dL Assessment and Plan Syncope Hx of CAD Hypertension Diabetes mellitus PVD
[2016-12-05] MEDS ORDERED: NACL 0.45% 500 ML IV SCH (16:00)
[2016-12-05] MEDS ORDERED: VANCOMYCIN PHARMACY TO DOSE IV SCH (16:00)
[2016-12-05] MEDS ORDERED: PROVENTIL IH PRN (16:03)
[2016-12-05] MEDS: ZOSYN/NS 4.5GM/100ML 4.5 GM/100 ML VIAL IV SCH (22:19)
[2016-12-06] MEDS ORDERED: VANCOMYCIN/NS 1 GM/250 ML 1 GM/250 ML BAG IV SCH (04:00)
[2016-12-06 04:28] LABS: Hematocrit 40.2 % (35.5-45.6); Hemoglobin 12.8 gm/dl (11.8-15.2); Mean Corpuscular HGB Conc 32 % (32-34); Mean Corpuscular Hemoglobin 27 pg (28-32); Mean Corpuscular Volume 86 fl (84-94); Platelet Count 215 K/mm3 (140-440); Red Blood Count 4.67 M/mm3 (3.65-5.03); Red Cell Distribution Width 14.1 % (13.2-15.2); White Blood Count 5.4 K/mm3 (4.5-11.0)
[2016-12-06 04:54] LABS: Alanine Aminotransferase 29 units/L (7-56); Albumin 3.5 g/dL (3.9-5); Albumin/Globulin Ratio 0.9 %; Alkaline Phosphatase 47 units/L (35-129); Anion Gap 19 mmol/L; BUN/Creatinine Ratio 21.81; Blood Urea Nitrogen 24 mg/dL (9-20); Carbon Dioxide 27 mmol/L (22-30); Chloride 97.1 mmol/L (98-107); Glucose 113 mg/dL (75-100); Potassium 4.2 mmol/L (3.6-5.0); Sodium 139 mmol/L (137-145); Total Protein 7.2 g/dL (6.3-8.2)
[2016-12-06 06:11] LABS: Basophils % (Manual) 0 % (0.0-1.8); Blastocytes % (Manual) 0 %; Eosinophils % (Manual) 0 % (0.0-4.3)
[2016-12-06 06:12] LABS: Anisocytosis Few; Diff Status Complete
[2016-12-06] MEDS: ZOSYN/NS 4.5GM/100ML 4.5 GM/100 ML VIAL IV SCH (06:34)
--- NOTE | 2016-12-06 09:19 | Progress Note ---
Assessment and Plan Assessment and plan: 71 YO Male with HTN, CVA, Severe CAD not amenable to stent placement, [place], DM, CaP, OA presents to ED for evaluation. Pt unable to provide history, but history is taken from who is at bedside during exam and interview. Pt states that patient was outside working in the yard, when she noticed that he was sitting on the front steps with his head back. Pt went outside and found patient unconscious, with vomitus bubbling in his mouth. He admits that it was over 100 degrees Fahrenheit and that he hadn't drank much water. pneumonia was ruled out CXR shows no infiltrate, VQ scan was low probability of PE abx were dc Metabolic Encephalopathy due to syncopal event, improving Lactic acidosis likely due to Dehydration IVF, supportive care, no evidence of infection Dehydration continue IVF NSTEMI was ruled out, serial troponins negative CAD Cardiology input appreciated "Medical therapy for small vessel coronary disease of the circumflex and right coronary arteries, not amenable to a cutaneous coronary intervention or coronary bypass. In addition to consideration of cardiac ischemia or arrhythmia , the patient's syncope will need to be evaluated for possible vasovagal or neurogenic syncope." continue cardiac meds Syncope obtain Echo, carotid dopplers, Obtain orthostatic vital signs, obtain EEG to assess for seizure Hypokalemia repleted and resolved HTN urgency resume home meds and optimize them Type 2 NIDDM hold oral meds, give SSI while in house DVT prophylaxis lovenox The high probability of a clinically significant, sudden or life threatening deterioration of the [pulmonary, cardiac] system(s) required my full and direct attention, intervention and personal management. The aggregate critical care time was [33] minutes. This time is in addition to time spent performing reported procedures but includes the following: [x] Data Review and interpretation [x] Patient assessment and monitoring of vital signs [x] Documentation [x] Medication orders and management History Interval history: denies dizzyness, denies any cp, sob or any further episodes of syncope Hospitalist Physical - Physical exam Narrative exam: General: Patient appears well in no distress HEENT: MMM, EOMI cardiac: S1-S2 heard lungs: clear to auscultation, abdomen: soft, nontender, nondistended bowel sounds positive extremities: no edema clubbing or cyanosis Skin: no rash or lesion Neuro: no focal deficit Psych: appropriate behavior and mood, cognition intact - Constitutional Vitals: Temp Pulse Resp BP Pulse Ox 98.0 F 94 H 24 170/89 99 12/06/16 08:00 12/06/16 09:00 12/06/16 09:00 12/06/16 09:00 12/06/16 09:00 General appearance: Present: severe distress Results - Labs CBC & Chem 7: 12/06/16 04:09 12/06/16 04:09 Labs: Laboratory Last Values WBC 5.4 K/mm3 (4.5-11.0) 12/06/16 04:09 RBC 4.67 M/mm3 (3.65-5.03) 12/06/16 04:09 Hgb 12.8 gm/dl (11.8-15.2) 12/06/16 04:09 Hct 40.2 % (35.5-45.6) 12/06/16 04:09 MCV 86 fl (84-94) 12/06/16 04:09 MCH 27 pg (28-32) L 12/06/16 04:09 MCHC 32 % (32-34) 12/06/16 04:09 RDW 14.1 % (13.2-15.2) 12/06/16 04:09 Plt Count 215 K/mm3 (140-440) 12/06/16 04:09 Lymph % (Auto) 14.8 % (13.4-35.0) 12/05/16 11:41 [place] % (Auto) 7.5 % (0.0-7.3) H 12/05/16 11:41 Eos % (Auto) 0.9 % (0.0-4.3) 12/05/16 11:41 Baso % (Auto) 0.4 % (0.0-1.8) 12/05/16 11:41 Lymph # 1.0 K/mm3 (1.2-5.4) L 12/05/16 11:41 [place] # 0.5 K/mm3 (0.0-0.8) 12/05/16 11:41 Eos # 0.1 K/mm3 (0.0-0.4) 12/05/16 11:41 Baso # 0.0 K/mm3 (0.0-0.1) 12/05/16 11:41 Add Manual Diff Complete 12/06/16 04:09 Total Counted 100 12/06/16 04:09 Seg Neutrophils % 76.4 % (40.0-70.0) H 12/05/16 11:41 Seg Neuts % (Manual) 35.0 % (40.0-70.0) L 12/06/16 04:09 Band Neutrophils % 30.0 % 12/06/16 04:09 Lymphocytes % (Manual) 9.0 % (13.4-35.0) L 12/06/16 04:09 Reactive Lymphs % (Man) 0 % 12/06/16 04:09 Monocytes % (Manual) 3.0 % (0.0-7.3) 12/06/16 04:09 Eosinophils % (Manual) 0 % (0.0-4.3) 12/06/16 04:09 Basophils % (Manual) 0 % (0.0-1.8) 12/06/16 04:09 Metamyelocytes % 13.0 % 12/06/16 04:09 Myelocytes % 10.0 % 12/06/16 04:09 Promyelocytes % 0 % 12/06/16 04:09 Blast Cells % 0 % 12/06/16 04:09 Nucleated RBC % Not Reportable 12/06/16 04:09 Seg Neutrophils # 5.3 K/mm3 (1.8-7.7) 12/05/16 11:41 Seg Neutrophils # Man 1.9 K/mm3 (1.8-7.7) 12/06/16 04:09 Band Neutrophils # 1.6 K/mm3 12/06/16 04:09 Lymphocytes # (Manual) 0.5 K/mm3 (1.2-5.4) L 12/06/16 04:09 Abs React Lymphs (Man) 0.0 K/mm3 12/06/16 04:09 Monocytes # (Manual) 0.2 K/mm3 (0.0-0.8) 12/06/16 04:09 Eosinophils # (Manual) 0.0 K/mm3 (0.0-0.4) 12/06/16 04:09 Basophils # (Manual) 0.0 K/mm3 (0.0-0.1) 12/06/16 04:09 Metamyelocytes # 0.7 K/mm3 12/06/16 04:09 Myelocytes # 0.5 K/mm3 12/06/16 04:09 Promyelocytes # 0.0 K/mm3 12/06/16 04:09 Blast Cells # 0.0 K/mm3 12/06/16 04:09 WBC Morphology Not Reportable 12/06/16 04:09 Hypersegmented Neuts Not Reportable 12/06/16 04:09 Hyposegmented Neuts Not Reportable 12/06/16 04:09 Hypogranular Neuts Not Reportable 12/06/16 04:09 Smudge Cells Not Reportable 12/06/16 04:09 Toxic Granulation Not Reportable 12/06/16 04:09 Toxic Vacuolation Not Reportable 12/06/16 04:09 Dohle Bodies Not Reportable 12/06/16 04:09 Pelger-Huet Anomaly Not Reportable 12/06/16 04:09 Thaddeus Rods Not Reportable 12/06/16 04:09 Platelet Estimate Appears normal 12/06/16 04:09 Clumped Platelets Not Reportable 12/06/16 04:09 Plt Clumps, EDTA Not Reportable 12/06/16 04:09 Large Platelets Not Reportable 12/06/16 04:09 Giant Platelets Not Reportable 12/06/16 04:09 Platelet Satelliting Not Reportable 12/06/16 04:09 Plt Morphology Comment Not Reportable 12/06/16 04:09 RBC Morphology Not Reportable 12/06/16 04:09 Dimorphic RBCs Not Reportable 12/06/16 04:09 Polychromasia Not Reportable 12/06/16 04:09 Hypochromasia Not Reportable 12/06/16 04:09 Poikilocytosis Not Reportable 12/06/16 04:09 Anisocytosis Few 12/06/16 04:09 Microcytosis Not Reportable 12/06/16 04:09 Macrocytosis Not Reportable 12/06/16 04:09 Spherocytes Not Reportable 12/06/16 04:09 Pappenheimer Bodies Not Reportable 12/06/16 04:09 Sickle Cells Not Reportable 12/06/16 04:09 Target Cells Not Reportable 12/06/16 04:09 Tear Drop Cells Not Reportable 12/06/16 04:09 Ovalocytes Not Reportable 12/06/16 04:09 Helmet Cells Not Reportable 12/06/16 04:09 Fraser-[place] Bodies Not Reportable 12/06/16 04:09 [place] Rings Not Reportable 12/06/16 04:09 Britta Cells Not Reportable 12/06/16 04:09 Bite Cells Not Reportable 12/06/16 04:09 Crenated Cell Not Reportable 12/06/16 04:09 Elliptocytes Not Reportable 12/06/16 04:09 Acanthocytes (Spur) Not Reportable 12/06/16 04:09 Rouleaux Not Reportable 12/06/16 04:09 Hemoglobin C Crystals Not Reportable 12/06/16 04:09 Schistocytes Not Reportable 12/06/16 04:09 Malaria parasites Not Reportable 12/06/16 04:09 Atif Bodies Not Reportable 12/06/16 04:09 Hem Pathologist Commnt Sent to pathology 12/06/16 04:09 PT 13.4 Sec. (12.2-14.9) 12/05/16 12:08 INR 0.97 (0.87-1.13) 12/05/16 12:08 APTT < 20.0 Sec. (24.2-36.6) L 12/05/16 12:08 D-Dimer 565.35 ng/mlDDU (0-234) H 12/05/16 12:08 Sodium 139 mmol/L (137-145) 12/06/16 04:09 Potassium 4.2 mmol/L (3.6-5.0) D 12/06/16 04:09 Chloride 97.1 mmol/L (98-107) L 12/06/16 04:09 Carbon Dioxide 27 mmol/L (22-30) 12/06/16 04:09 Anion Gap 19 mmol/L 12/06/16 04:09 BUN 24 mg/dL (9-20) H 12/06/16 04:09 Creatinine 1.1 mg/dL (0.8-1.5) 12/06/16 04:09 Estimated GFR > 60 ml/min 12/06/16 04:09 BUN/Creatinine Ratio 21.81 % 12/06/16 04:09 Glucose 113 mg/dL (75-100) H 12/06/16 04:09 POC Glucose 120 (70-105) H 12/06/16 07:07 Lactic Acid 3.70 mmol/L (0.7-2.0) H* 12/05/16 21:26 Calcium 9.0 mg/dL (8.4-10.2) 12/06/16 04:09 Magnesium 1.80 mg/dL (1.7-2.3) 12/05/16 11:41 Total Bilirubin 0.40 mg/dL (0.1-1.2) 12/06/16 04:09 AST 23 units/L (5-40) 12/06/16 04:09 ALT 29 units/L (7-56) 12/06/16 04:09 Alkaline Phosphatase 47 units/L (35-129) 12/06/16 04:09 Troponin T < 0.010 ng/mL (0.00-0.029) 12/05/16 12:08 Total Protein 7.2 g/dL (6.3-8.2) 12/06/16 04:09 Albumin 3.5 g/dL (3.9-5) L 12/06/16 04:09 Albumin/Globulin Ratio 0.9 % 12/06/16 04:09 TSH 2.310 mlU/mL (0.270-4.200) 12/05/16 11:41 Urine Color Yellow (Yellow) 12/05/16 12:57 Urine Turbidity Clear (Clear) 12/05/16 12:57 Urine pH 5.0 (5.0-7.0) 12/05/16 12:57 Ur Specific [place] 1.015 (1.003-1.030) 12/05/16 12:57 Urine Protein <15 mg/dl mg/dL (Negative) 12/05/16 12:57 Urine Glucose (UA) Neg mg/dL (Negative) 12/05/16 12:57 Urine Ketones Neg mg/dL (Negative) 12/05/16 12:57 Urine Blood Neg (Negative) 12/05/16 12:57 Urine Nitrite Neg (Negative) 12/05/16 12:57 Urine Bilirubin Neg (Negative) 12/05/16 12:57 Urine Urobilinogen < 2.0 mg/dL (<2.0) 12/05/16 12:57 Ur Leukocyte Esterase Neg (Negative) 12/05/16 12:57 Urine WBC (Auto) 1.0 /HPF (0.0-6.0) 12/05/16 12:57 Urine RBC (Auto) 2.0 /HPF (0.0-6.0) 12/05/16 12:57 U Epithel Cells (Auto) < 1.0 /HPF (0-13.0) 12/05/16 12:57 Hyaline Casts 3 /LPF 12/05/16 12:57 Urine Mucus Few /HPF 12/05/16 12:57 Salicylates < 0.3 mg/dL (2.8-20.0) L 12/05/16 11:41 Urine Opiates Screen Presumptive negative 12/05/16 12:57 Urine Methadone Screen Presumptive negative 12/05/16 12:57 Acetaminophen < 15.0 ug/mL (10.0-30.0) 12/05/16 11:41 Ur Barbiturates Screen Presumptive negative 12/05/16 12:57 Ur Phencyclidine Scrn Presumptive negative 12/05/16 12:57 Ur Amphetamines Screen Presumptive negative 12/05/16 12:57 U Benzodiazepines Scrn Presumptive negative 12/05/16 12:57 Urine Cocaine Screen Presumptive negative 12/05/16 12:57 U Marijuana (THC) Screen Presumptive negative 12/05/16 12:57 Drugs of Abuse Note Disclamer 12/05/16 12:57 Plasma/Serum Alcohol < 0.01 gm% (0-0.07) 12/05/16 11:41
--- NOTE | 2016-12-06 09:21 | Consultation ---
History of Present Illness Consult date: 12/06/16 Requesting physician: PARVEEN LOUIS History of present illness: 71 y/o male with known CAD, not a candidate for operation, admitted after having a syncopal event at home while mowing the lawn. found patient outside passed out. She was vomiting/foaming at the mouth so she turned him on his side. EMS came and brought patient to ED. IMS requested ICU admission as they were concern for impending respiratory failure. Currently patient awake alert and oriented. at bedside. Past History Past Medical History: acute ID, arthritis, CAD, cancer, hypertension, stroke Past Surgical History: No surgical history, Other (reviewed) Social history: , lives with family. denies: smoking, alcohol abuse, prescription drug abuse Family history: CAD, hypertension Medications and Allergies Allergies Allergy/AdvReac Type Severity Reaction Status Date / Time LUIS MIGUEL Inhibitors AdvReac Severe SEVERE LIP Verified 12/06/16 07:55 SWELLING IV CONTRAST DYE AdvReac Hives Uncoded 12/06/16 07:55 Home Medications Medication Instructions Recorded Confirmed Last Taken Type Amlodipine Bes/Olmesartan Med 1 tab PO DAILY 03/28/16 12/05/16 12/05/16 History [Jd 10-40 mg] Aspirin EC [Aspirin Enteric Coated 81 mg PO DAILY 03/28/16 12/05/16 12/05/16 History TAB] Atenolol 100 mg PO BID 03/28/16 12/05/16 12/05/16 History Bimatoprost 0.01%(Nf) [Lumigan 1 drop INTRAOCULA DAILY 03/28/16 12/05/16 History 0.01%(Nf)] 1 drop Brimonidine Tartrate [Alphagan P 1 drop INTRAOCULA BID 03/28/16 12/05/16 History 0.1%] 1 drop Clonidine HCl 0.3 mg PO BID 03/28/16 12/05/16 12/05/16 History Olmesartan/Hydrochlorothiazide 1 tab PO DAILY 03/28/16 12/05/16 12/05/16 History [Benicar HCT 20-12.5 mg] Tamsulosin HCl 0.4 mg PO DAILY 03/28/16 12/05/16 12/05/16 History hydrALAZINE [Apresoline TAB] 100 mg PO TID 03/28/16 12/05/16 12/04/16 History AtorvaSTATin [Lipitor] 40 mg PO QHS 12/05/16 12/05/16 12/04/16 History Clopidogrel [Plavix] 75 mg PO QDAY 12/05/16 12/05/16 12/05/16 History Metoprolol Xl [Metoprolol 25 mg PO Q12H 12/05/16 12/05/16 12/05/16 History SUCCINATE ER TAB] Sitagliptin Phos/Metformin HCl 1 each PO BID 12/05/16 12/05/16 12/05/16 History [Janumet 50-500 mg Tablet] Active Meds: Active Medications Al Hydrox/Mg Hydrox/Simethicone (Alum-Mag Hydrox-Simeth 249-802-55zn/5ml) 30 ml PO Q4H PRN PRN Reason: Indigestion Albuterol (Proventil) 2.5 mg IH Q4HRT PRN PRN Reason: Shortness Of Breath Aspirin (Halfprin Ec) 81 mg PO DAILY LORY Atorvastatin Calcium (Lipitor) 40 mg PO QHS LORY Bisacodyl (Dulcolax) 10 mg OR QDAY PRN PRN Reason: constipation unrelieved by MOM Clopidogrel Bisulfate (Plavix) 75 mg PO QDAY LORY Vancomycin HCl (Vancomycin/Ns 1 Gm/250 Ml) 1 gm in 250 mls @ 167.007 mls/hr IV Q24H LORY PRN Reason: Protocol Last Admin: 12/06/16 04:16 Dose: 167.007 mls/hr Piperacillin Sod/Tazobactam Sod (Zosyn/Ns 4.5gm/100ml) 4.5 gm in 100 mls @ 200 mls/hr IV Q8HR LORY PRN Reason: Protocol Last Admin: 12/06/16 06:34 Dose: 200 mls/hr Sodium Chloride (Nacl 0.45%) 500 mls @ 50 mls/hr IV DIRECT LORY Last Admin: 12/05/16 16:50 Dose: 50 mls/hr Magnesium Hydroxide (Milk Of Magnesia) 30 ml PO Q4H PRN PRN Reason: Constipation Metoprolol Succinate (Toprol Xl) 25 mg PO Q12H LORY Miscellaneous Medication (Amlodipine Bes/Olmesartan Med [Jd 10-40 Mg]) 1 tab PO DAILY LORY Miscellaneous Medication (Bimatoprost 0.01%(Nf)) 1 drop INTRAOCULA DAILY LORY Miscellaneous Medication (Brimonidine Tartrate [Alphagan P 0.1%]) 1 drop INTRAOCULA BID LROY Miscellaneous Medication (Clonidine Hcl [Clonidine Hcl]) 0.3 mg PO BID LORY Tamsulosin HCl (Flomax) 0.4 mg PO DAILY LORY Vancomycin HCl (Vancomycin Pharmacy To Dose) 1 each IV PKCONSULT LORY PRN Reason: Protocol Review of Systems All systems: negative Physical Examination Vital signs: Vital Signs Pulse Resp BP Pulse Ox 70 24 135/70 93 12/05/16 12:00 12/05/16 12:00 12/05/16 12:00 12/05/16 12:00 General appearance: no acute distress, alert Eyes: non-icteric ENT: oropharynx dry Neck: supple Effort: mildly labored Ascultation: Bilateral: clear Percussion: Bilateral: not dull Tactile fremitus: Bilateral: normal Cardiovascular: regular rate and rhythm Gastrointestinal: normoactive bowel sounds, soft, non-tender Integumentary: normal Extremities: pink and warm Musculoskeletal: no deformities normal mental status, non-focal exam mood appropriate, affect normal Results - Laboratory Findings CBC and BMP: 12/06/16 04:09 12/06/16 04:09 PT/INR, D-dimer PT 13.4 Sec. (12.2-14.9) 12/05/16 12:08 INR 0.97 (0.87-1.13) 12/05/16 12:08 D-Dimer 565.35 ng/mlDDU (0-234) H 12/05/16 12:08 Abnormal lab findings: Abnormal Labs 12/05/16 12/06/16 12/06/16 21:26 04:09 04:09 MCH 27 L Seg Neuts % (Manual) 35.0 L Lymphocytes % (Manual) 9.0 L Lymphocytes # (Manual) 0.5 L Chloride 97.1 L BUN 24 H Glucose 113 H POC Glucose Lactic Acid 3.70 H* Albumin 3.5 L 12/06/16 07:07 MCH Seg Neuts % (Manual) Lymphocytes % (Manual) Lymphocytes # (Manual) Chloride BUN Glucose POC Glucose 120 H Lactic Acid Albumin - Diagnostic Findings Chest x-ray: image reviewed (clear, no acute disease) Assessment and Plan 71 y/o male with syncopal event, possible heat exhaustion. 1. Check orthostatics on patient 2. Restart home medication therapy. 3. Per and patient, he has had at least 5 syncopal episodes. May need to have medication readjusted. 4. Wean FiO2 5. Appears stable for transfer to floor.
[2016-12-06] MEDS ORDERED: AMLODIPINE BES PO SCH (10:00)
[2016-12-06] MEDS ORDERED: CLONIDINE HCL 0.3 MG PO SCH (10:00)
[2016-12-06] MEDS ORDERED: BIMATOPROST 0.01% INTRAOCULA SCH (10:00)
[2016-12-06] MEDS ORDERED: ROCEPHIN/NS 1 GM/50 ML 1 GM/50 ML BAG IV SCH (10:00)
[2016-12-06] MEDS ORDERED: TOPROL XL PO SCH (10:00)
[2016-12-06] MEDS ORDERED: COZAAR PO SCH (10:00)
[2016-12-06] MEDS ORDERED: OLMESARTAN MED PO SCH (10:00)
[2016-12-06] MEDS ORDERED: ZITHROMAX 500 MG in NACL 0.9% 250ML 250 ML IV SCH (10:00)
[2016-12-06] MEDS: NORVASC PO SCH (10:47)
[2016-12-06] MEDS: CATAPRES PO SCH ×2 (10:47→21:49)
[2016-12-06] MEDS: PLAVIX PO SCH (10:47)
[2016-12-06] MEDS: HALFPRIN EC PO SCH (10:47)
[2016-12-06] MEDS: FLOMAX PO SCH (10:48)
--- NOTE | 2016-12-06 11:56 | Progress Note ---
Assessment and Plan 1. Syncope likely secondary to dehydration improving 2. CAD small vessel coronary disease of the circumflex and right coronary arteries, not amenable to a cutaneous coronary intervention or coronary bypass on medical therapy no anginal symptoms currently 3. HTN well controlled 4. Hypokalemia resolved Plan Continue same IV hydration 2D echo If patient has anginal symptoms add Ranexa Subjective Date of service: 12/06/16 Principal diagnosis: syncope Interval history: No events overnight Objective Vital Signs Temp Pulse Pulse Pulse Pulse Resp BP 12/06/16 11:01 99 H 24 188/97 12/06/16 10:51 107 H 26 H 188/97 12/06/16 10:48 93 H 176/93 12/06/16 10:47 93 H 176/93 12/06/16 10:41 98 H 24 176/93 12/06/16 10:31 97 H 26 H 176/93 12/06/16 10:21 95 H 29 H 176/93 12/06/16 10:11 97 H 29 H 176/93 12/06/16 10:07 107 H 103 H 115 H 12/06/16 10:00 101 H 31 H 176/93 12/06/16 09:51 106 H 31 H 170/89 12/06/16 09:41 103 H 29 H 170/89 12/06/16 09:31 105 H 19 170/89 12/06/16 09:21 96 H 26 H 170/89 12/06/16 09:11 96 H 33 H 170/89 12/06/16 09:00 94 H 24 170/89 12/06/16 08:51 92 H 24 162/75 12/06/16 08:41 95 H 22 162/75 12/06/16 08:31 88 19 175/83 12/06/16 08:21 95 H 24 175/83 12/06/16 08:11 93 H 25 H 175/83 12/06/16 08:00 98.0 F 92 H 22 162/75 12/06/16 07:51 100 H 32 H 175/83 12/06/16 07:41 97 H 27 H 175/83 12/06/16 07:31 99 H 27 H 175/83 12/06/16 07:28 12/06/16 07:21 94 H 23 175/83 12/06/16 07:11 96 H 24 175/83 12/06/16 07:01 100 H 27 H 177/80 12/06/16 06:51 107 H 20 177/80 12/06/16 06:44 12/06/16 06:31 90 23 159/89 12/06/16 06:21 91 H 23 159/89 12/06/16 06:11 92 H 23 159/89 12/06/16 06:00 92 H 22 159/89 12/06/16 05:31 95 H 25 H 164/94 12/06/16 05:19 100 H 30 H 12/06/16 04:31 93 H 26 H 148/85 12/06/16 04:01 90 25 H 139/69 12/06/16 04:00 89 23 139/69 12/06/16 03:59 88 22 148/85 12/06/16 03:57 90 25 H 148/85 12/06/16 03:55 95 H 20 148/85 12/06/16 03:53 94 H 21 148/85 12/06/16 03:51 93 H 26 H 148/85 12/06/16 03:49 92 H 27 H 148/85 12/06/16 03:47 92 H 25 H 148/85 12/06/16 03:45 92 H 27 H 148/85 12/06/16 03:43 92 H 26 H 148/85 12/06/16 03:41 93 H 27 H 148/85 12/06/16 03:39 94 H 19 148/85 12/06/16 03:37 96 H 25 H 148/85 12/06/16 03:35 96 H 27 H 148/85 12/06/16 03:33 96 H 28 H 148/85 12/06/16 03:31 97 H 27 H 148/85 12/06/16 03:29 96 H 27 H 148/85 12/06/16 03:27 96 H 24 148/85 12/06/16 03:25 95 H 26 H 148/85 12/06/16 03:23 97 H 23 148/85 12/06/16 03:21 93 H 27 H 148/85 12/06/16 03:19 93 H 26 H 148/85 12/06/16 03:17 93 H 26 H 148/85 12/06/16 03:15 94 H 26 H 148/85 12/06/16 03:13 97 H 30 H 148/85 12/06/16 03:11 95 H 27 H 148/85 12/06/16 03:09 93 H 27 H 148/85 12/06/16 03:07 96 H 25 H 148/85 12/06/16 03:05 92 H 25 H 148/85 12/06/16 03:03 96 H 27 H 148/85 12/06/16 03:01 97 H 26 H 148/85 12/06/16 03:00 97 H 25 H 148/85 12/06/16 02:59 92 H 27 H 140/83 12/06/16 02:57 94 H 31 H 140/83 12/06/16 02:55 94 H 24 140/83 12/06/16 02:53 95 H 25 H 140/83 12/06/16 02:51 98 H 31 H 140/83 12/06/16 02:49 93 H 28 H 140/83 12/06/16 02:47 105 H 33 H 140/83 12/06/16 02:45 95 H 29 H 140/83 12/06/16 02:43 96 H 25 H 140/83 12/06/16 02:41 93 H 29 H 140/83 12/06/16 02:39 93 H 27 H 140/83 12/06/16 02:37 95 H 31 H 140/83 12/06/16 02:35 93 H 24 148/89 12/06/16 02:33 91 H 24 148/89 12/06/16 02:31 93 H 25 H 148/89 12/06/16 02:29 92 H 28 H 148/89 12/06/16 02:27 103 H 25 H 148/89 12/06/16 02:25 94 H 24 148/89 12/06/16 02:23 94 H 24 148/89 12/06/16 02:21 93 H 26 H 148/89 12/06/16 02:19 93 H 24 148/89 12/06/16 02:17 94 H 27 H 148/89 12/06/16 02:15 93 H 18 148/89 12/06/16 02:13 94 H 22 148/89 12/06/16 02:11 96 H 25 H 148/89 12/06/16 02:09 94 H 28 H 148/89 12/06/16 02:07 93 H 24 148/89 12/06/16 02:05 94 H 25 H 148/89 12/06/16 02:03 95 H 23 148/89 12/06/16 02:01 94 H 28 H 148/89 12/06/16 01:59 92 H 24 148/89 12/06/16 01:57 93 H 21 148/89 12/06/16 01:55 93 H 23 148/89 12/06/16 01:53 95 H 21 148/89 12/06/16 01:51 96 H 21 148/89 12/06/16 01:49 28 H 148/89 12/06/16 01:47 29 H 148/89 12/06/16 01:45 23 148/89 12/06/16 01:43 23 148/89 12/06/16 01:41 22 148/89 12/06/16 01:39 23 148/89 12/06/16 01:37 24 148/89 12/06/16 01:35 22 148/89 12/06/16 01:33 24 148/89 12/06/16 01:31 22 148/89 12/06/16 01:29 24 148/89 12/06/16 01:27 25 H 148/89 12/06/16 01:25 25 H 148/89 12/06/16 01:23 26 H 148/89 12/06/16 01:21 26 H 148/89 12/06/16 01:19 29 H 148/89 12/06/16 01:17 23 148/89 12/06/16 01:15 25 H 148/89 12/06/16 01:13 24 148/89 12/06/16 01:11 23 148/89 12/06/16 01:09 24 148/89 12/06/16 01:07 26 H 148/89 12/06/16 01:05 25 H 148/89 12/06/16 01:03 28 H 148/89 12/06/16 01:01 29 H 148/89 12/06/16 01:00 28 H 148/89 12/06/16 00:59 26 H 156/81 12/06/16 00:57 24 156/81 12/06/16 00:55 25 H 156/81 12/06/16 00:53 24 156/81 12/06/16 00:51 25 H 156/81 12/06/16 00:49 23 156/81 12/06/16 00:47 25 H 156/81 12/06/16 00:45 28 H 156/81 12/06/16 00:43 27 H 156/81 12/06/16 00:41 24 156/81 12/06/16 00:39 26 H 156/81 12/06/16 00:37 23 156/81 12/06/16 00:35 24 156/81 12/06/16 00:33 28 H 156/81 12/06/16 00:31 25 H 156/81 12/06/16 00:29 26 H 156/81 12/06/16 00:27 23 156/81 12/06/16 00:25 25 H 156/81 12/06/16 00:23 24 156/81 12/06/16 00:21 25 H 156/81 12/06/16 00:19 25 H 156/81 12/06/16 00:17 22 156/81 12/06/16 00:15 25 H 156/81 12/06/16 00:13 27 H 156/81 12/06/16 00:11 25 H 156/81 12/06/16 00:09 20 156/81 12/06/16 00:07 24 156/81 12/06/16 00:05 23 156/81 12/06/16 00:03 25 H 156/81 12/06/16 00:01 23 156/81 12/06/16 00:00 25 H 156/81 12/05/16 23:59 26 H 154/85 12/05/16 23:57 27 H 154/85 12/05/16 23:55 22 154/85 12/05/16 23:53 23 154/85 12/05/16 23:51 22 154/85 12/05/16 23:49 22 154/85 12/05/16 23:47 29 H 154/85 12/05/16 23:45 26 H 154/85 12/05/16 23:43 25 H 154/85 12/05/16 23:41 24 154/85 12/05/16 23:39 24 154/85 12/05/16 23:37 24 154/85 12/05/16 23:35 26 H 154/85 12/05/16 23:33 20 154/85 12/05/16 23:31 24 154/85 12/05/16 23:29 25 H 154/85 12/05/16 23:27 26 H 154/85 12/05/16 23:25 26 H 154/85 12/05/16 23:23 27 H 154/85 12/05/16 23:21 25 H 154/85 12/05/16 23:19 26 H 154/85 12/05/16 23:17 27 H 154/85 12/05/16 23:15 27 H 154/85 12/05/16 23:13 25 H 154/85 12/05/16 23:11 26 H 154/85 12/05/16 23:09 26 H 154/85 12/05/16 23:07 28 H 154/85 12/05/16 23:05 25 H 154/85 12/05/16 23:03 25 H 154/85 12/05/16 23:01 30 H 154/85 12/05/16 23:00 26 H 154/85 12/05/16 22:59 24 129/85 12/05/16 22:57 34 H 129/85 12/05/16 22:55 34 H 129/85 12/05/16 22:53 28 H 129/85 12/05/16 22:51 28 H 129/85 12/05/16 22:49 25 H 129/85 12/05/16 22:47 24 129/85 12/05/16 22:45 25 H 129/85 12/05/16 22:43 28 H 129/85 12/05/16 22:41 29 H 129/85 12/05/16 22:39 27 H 129/85 12/05/16 22:37 21 129/85 12/05/16 22:35 33 H 129/85 12/05/16 22:33 19 129/85 12/05/16 22:31 28 H 129/85 12/05/16 22:29 24 129/85 12/05/16 22:27 24 129/85 12/05/16 22:25 24 129/85 12/05/16 22:23 22 129/85 12/05/16 22:21 25 H 129/85 12/05/16 22:19 26 H 129/85 12/05/16 22:17 26 H 129/85 12/05/16 22:15 25 H 129/85 12/05/16 22:13 24 129/85 12/05/16 22:11 25 H 129/85 12/05/16 22:09 27 H 129/85 12/05/16 22:07 28 H 129/85 12/05/16 22:05 25 H 129/85 12/05/16 22:03 25 H 129/85 12/05/16 22:01 29 H 129/85 12/05/16 22:00 23 129/85 12/05/16 21:59 30 H 154/86 12/05/16 21:57 30 H 154/86 12/05/16 21:55 26 H 154/86 12/05/16 21:53 30 H 154/86 12/05/16 21:51 25 H 154/86 12/05/16 21:49 29 H 154/86 12/05/16 21:47 27 H 154/86 12/05/16 21:45 23 154/86 12/05/16 21:43 26 H 154/86 12/05/16 21:41 26 H 154/86 12/05/16 21:39 26 H 154/86 12/05/16 21:37 33 H 154/86 12/05/16 21:35 28 H 154/86 12/05/16 21:33 26 H 154/86 12/05/16 21:31 27 H 154/86 12/05/16 21:29 34 H 154/86 12/05/16 21:27 31 H 154/86 12/05/16 21:25 21 154/86 12/05/16 21:23 31 H 154/86 12/05/16 21:21 26 H 154/86 12/05/16 21:19 27 H 154/86 12/05/16 21:17 101 H 30 H 154/86 12/05/16 21:15 102 H 26 H 154/86 12/05/16 21:13 102 H 28 H 154/86 12/05/16 21:11 101 H 24 154/86 12/05/16 21:09 100 H 25 H 154/86 12/05/16 21:07 100 H 25 H 154/86 12/05/16 21:06 22 12/05/16 21:05 101 H 25 H 154/86 12/05/16 21:03 100 H 22 154/86 12/05/16 21:01 101 H 24 154/86 12/05/16 21:00 99 H 24 154/86 12/05/16 20:59 102 H 20 154/90 12/05/16 20:57 100 H 25 H 154/90 12/05/16 20:55 100 H 24 154/90 12/05/16 20:53 102 H 26 H 154/90 12/05/16 20:51 101 H 23 154/90 12/05/16 20:49 102 H 25 H 154/90 12/05/16 20:47 103 H 25 H 154/90 12/05/16 20:45 102 H 25 H 154/90 12/05/16 20:43 107 H 24 154/90 12/05/16 20:41 105 H 29 H 154/90 12/05/16 20:39 104 H 24 154/90 12/05/16 20:37 102 H 23 154/90 12/05/16 20:35 101 H 24 154/90 12/05/16 20:31 101 H 26 H 154/90 12/05/16 20:21 105 H 22 154/90 12/05/16 20:11 106 H 26 H 154/90 12/05/16 20:00 109 H 32 H 154/90 12/05/16 19:51 106 H 32 H 134/89 12/05/16 19:41 106 H 32 H 134/89 12/05/16 19:31 108 H 27 H 134/89 12/05/16 19:21 105 H 26 H 134/89 12/05/16 19:11 105 H 26 H 134/89 12/05/16 19:00 106 H 26 H 134/89 12/05/16 18:51 106 H 34 H 156/65 12/05/16 18:41 102 H 29 H 156/65 12/05/16 18:31 105 H 27 H 156/65 12/05/16 18:21 107 H 28 H 156/65 12/05/16 18:11 105 H 28 H 156/65 12/05/16 18:01 108 H 28 H 156/65 12/05/16 17:51 108 H 29 H 147/93 12/05/16 17:41 102 H 27 H 147/93 12/05/16 17:31 101 H 29 H 147/93 12/05/16 17:21 101 H 27 H 147/93 12/05/16 17:11 99 H 28 H 147/93 12/05/16 17:00 101 H 23 147/93 12/05/16 16:51 103 H 28 H 126/76 12/05/16 16:41 102 H 30 H 126/76 12/05/16 16:31 101 H 26 H 126/76 12/05/16 16:21 102 H 25 H 126/76 12/05/16 16:11 100 H 27 H 126/76 12/05/16 16:00 103 H 30 H 126/76 12/05/16 15:51 101 H 22 143/82 12/05/16 15:41 102 H 33 H 143/82 12/05/16 15:31 104 H 31 H 143/82 12/05/16 15:21 104 H 32 H 143/82 12/05/16 15:11 107 H 32 H 143/82 BP BP BP BP Pulse Ox 12/06/16 11:01 98 12/06/16 10:51 97 12/06/16 10:48 12/06/16 10:47 12/06/16 10:41 96 12/06/16 10:31 96 12/06/16 10:21 96 12/06/16 10:11 97 12/06/16 10:07 176/93 200/100 188/97 12/06/16 10:00 99 12/06/16 09:51 98 12/06/16 09:41 98 12/06/16 09:31 96 12/06/16 09:21 97 12/06/16 09:11 99 12/06/16 09:00 99 12/06/16 08:51 99 12/06/16 08:41 98 12/06/16 08:31 97 12/06/16 08:21 98 12/06/16 08:11 98 12/06/16 08:00 96 12/06/16 07:51 99 12/06/16 07:41 99 12/06/16 07:31 96 12/06/16 07:28 99 12/06/16 07:21 99 12/06/16 07:11 99 12/06/16 07:01 98 12/06/16 06:51 98 12/06/16 06:44 97 12/06/16 06:31 96 12/06/16 06:21 96 12/06/16 06:11 96 12/06/16 06:00 95 12/06/16 05:31 98 12/06/16 05:19 98 12/06/16 04:31 99 12/06/16 04:01 100 12/06/16 04:00 100 12/06/16 03:59 100 12/06/16 03:57 100 12/06/16 03:55 100 12/06/16 03:53 99 12/06/16 03:51 99 12/06/16 03:49 99 12/06/16 03:47 100 12/06/16 03:45 100 12/06/16 03:43 100 12/06/16 03:41 100 12/06/16 03:39 99 12/06/16 03:37 98 12/06/16 03:35 99 12/06/16 03:33 98 12/06/16 03:31 98 12/06/16 03:29 99 12/06/16 03:27 99 12/06/16 03:25 99 12/06/16 03:23 99 12/06/16 03:21 100 12/06/16 03:19 99 12/06/16 03:17 100 12/06/16 03:15 100 12/06/16 03:13 99 12/06/16 03:11 100 12/06/16 03:09 99 12/06/16 03:07 100 12/06/16 03:05 100 12/06/16 03:03 100 12/06/16 03:01 100 12/06/16 03:00 100 12/06/16 02:59 100 12/06/16 02:57 100 12/06/16 02:55 100 12/06/16 02:53 99 12/06/16 02:51 99 12/06/16 02:49 100 12/06/16 02:47 97 12/06/16 02:45 98 12/06/16 02:43 99 12/06/16 02:41 100 12/06/16 02:39 100 12/06/16 02:37 100 12/06/16 02:35 100 12/06/16 02:33 100 12/06/16 02:31 100 12/06/16 02:29 100 12/06/16 02:27 97 12/06/16 02:25 99 12/06/16 02:23 99 12/06/16 02:21 100 12/06/16 02:19 100 12/06/16 02:17 100 12/06/16 02:15 100 12/06/16 02:13 100 12/06/16 02:11 100 12/06/16 02:09 100 12/06/16 02:07 100 12/06/16 02:05 100 12/06/16 02:03 100 12/06/16 02:01 100 12/06/16 01:59 100 12/06/16 01:57 100 12/06/16 01:55 100 12/06/16 01:53 100 12/06/16 01:51 100 12/06/16 01:49 100 12/06/16 01:47 100 12/06/16 01:45 100 12/06/16 01:43 100 12/06/16 01:41 100 12/06/16 01:39 100 12/06/16 01:37 100 12/06/16 01:35 100 12/06/16 01:33 100 12/06/16 01:31 100 12/06/16 01:29 100 12/06/16 01:27 100 12/06/16 01:25 100 12/06/16 01:23 99 12/06/16 01:21 99 12/06/16 01:19 100 12/06/16 01:17 100 12/06/16 01:15 100 12/06/16 01:13 100 12/06/16 01:11 100 12/06/16 01:09 100 12/06/16 01:07 100 12/06/16 01:05 100 12/06/16 01:03 100 12/06/16 01:01 100 12/06/16 01:00 100 12/06/16 00:59 100 12/06/16 00:57 99 12/06/16 00:55 100 12/06/16 00:53 99 12/06/16 00:51 99 12/06/16 00:49 100 12/06/16 00:47 100 12/06/16 00:45 100 12/06/16 00:43 100 12/06/16 00:41 100 12/06/16 00:39 100 12/06/16 00:37 100 12/06/16 00:35 100 12/06/16 00:33 99 12/06/16 00:31 100 12/06/16 00:29 100 12/06/16 00:27 100 12/06/16 00:25 100 12/06/16 00:23 100 12/06/16 00:21 100 12/06/16 00:19 100 12/06/16 00:17 100 12/06/16 00:15 100 12/06/16 00:13 100 12/06/16 00:11 100 12/06/16 00:09 100 12/06/16 00:07 100 12/06/16 00:05 100 12/06/16 00:03 100 12/06/16 00:01 100 12/06/16 00:00 100 12/05/16 23:59 99 12/05/16 23:57 100 12/05/16 23:55 99 12/05/16 23:53 99 12/05/16 23:51 99 12/05/16 23:49 99 12/05/16 23:47 99 12/05/16 23:45 100 12/05/16 23:43 100 12/05/16 23:41 99 12/05/16 23:39 99 12/05/16 23:37 99 12/05/16 23:35 100 12/05/16 23:33 99 12/05/16 23:31 99 12/05/16 23:29 100 12/05/16 23:27 100 12/05/16 23:25 99 12/05/16 23:23 99 12/05/16 23:21 99 12/05/16 23:19 100 12/05/16 23:17 100 12/05/16 23:15 100 12/05/16 23:13 100 12/05/16 23:11 100 12/05/16 23:09 100 12/05/16 23:07 100 12/05/16 23:05 100 12/05/16 23:03 100 12/05/16 23:01 100 12/05/16 23:00 100 12/05/16 22:59 100 12/05/16 22:57 100 12/05/16 22:55 99 12/05/16 22:53 99 12/05/16 22:51 99 12/05/16 22:49 100 12/05/16 22:47 100 12/05/16 22:45 100 12/05/16 22:43 100 12/05/16 22:41 100 12/05/16 22:39 100 12/05/16 22:37 100 12/05/16 22:35 100 12/05/16 22:33 98 12/05/16 22:31 99 12/05/16 22:29 99 12/05/16 22:27 99 12/05/16 22:25 100 12/05/16 22:23 99 12/05/16 22:21 99 12/05/16 22:19 99 12/05/16 22:17 99 12/05/16 22:15 99 12/05/16 22:13 99 12/05/16 22:11 99 12/05/16 22:09 99 12/05/16 22:07 99 12/05/16 22:05 99 12/05/16 22:03 99 12/05/16 22:01 99 12/05/16 22:00 98 12/05/16 21:59 99 12/05/16 21:57 99 12/05/16 21:55 99 12/05/16 21:53 99 12/05/16 21:51 99 12/05/16 21:49 99 12/05/16 21:47 99 12/05/16 21:45 99 12/05/16 21:43 99 12/05/16 21:41 99 12/05/16 21:39 99 12/05/16 21:37 99 12/05/16 21:35 99 12/05/16 21:33 99 12/05/16 21:31 99 12/05/16 21:29 99 12/05/16 21:27 99 12/05/16 21:25 99 12/05/16 21:23 100 12/05/16 21:21 99 12/05/16 21:19 100 12/05/16 21:17 99 12/05/16 21:15 100 12/05/16 21:13 99 12/05/16 21:11 100 12/05/16 21:09 99 12/05/16 21:07 100 12/05/16 21:06 97 12/05/16 21:05 99 12/05/16 21:03 99 12/05/16 21:01 99 12/05/16 21:00 99 12/05/16 20:59 99 12/05/16 20:57 99 12/05/16 20:55 99 12/05/16 20:53 99 12/05/16 20:51 99 12/05/16 20:49 99 12/05/16 20:47 99 12/05/16 20:45 99 12/05/16 20:43 96 12/05/16 20:41 99 12/05/16 20:39 99 12/05/16 20:37 99 12/05/16 20:35 99 12/05/16 20:31 99 12/05/16 20:21 99 12/05/16 20:11 99 12/05/16 20:00 99 12/05/16 19:51 99 12/05/16 19:41 99 12/05/16 19:31 99 12/05/16 19:21 99 12/05/16 19:11 99 12/05/16 19:00 99 12/05/16 18:51 99 12/05/16 18:41 100 12/05/16 18:31 99 12/05/16 18:21 99 12/05/16 18:11 99 12/05/16 18:01 99 12/05/16 17:51 99 12/05/16 17:41 100 12/05/16 17:31 100 12/05/16 17:21 100 12/05/16 17:11 100 12/05/16 17:00 143/93 100 12/05/16 16:51 99 12/05/16 16:41 99 12/05/16 16:31 99 12/05/16 16:21 99 12/05/16 16:11 98 12/05/16 16:00 98 12/05/16 15:51 97 12/05/16 15:41 96 12/05/16 15:31 96 12/05/16 15:21 96 12/05/16 15:11 97 - Physical Examination Narrative exam: GEN: NAD HEENT: Carotids 2+ NECK: SUPPLE, CVS: RRR, NORMAL S1S2 LUNGS/CHEST: CTA ABD: SOFT, MSK: FROM X 4 EXTREMITIES NEURO: CN 2-12 GROSSLY INTACT, NO FOCAL DEFICITS PSY: CALM HEENT: Positive: PERRL Neck: Positive: trachea midline - Labs and Meds Cardiac Enzymes 12/06/16 Range/Units 04:09 AST 23 (5-40) units/L CBC 12/06/16 Range/Units 04:09 WBC 5.4 (4.5-11.0) K/mm3 RBC 4.67 (3.65-5.03) M/mm3 Hgb 12.8 (11.8-15.2) gm/dl Hct 40.2 (35.5-45.6) % Plt Count 215 (140-440) K/mm3 Comprehensive Metabolic Panel 12/06/16 Range/Units 04:09 Sodium 139 (137-145) mmol/L Potassium 4.2 D (3.6-5.0) mmol/L Chloride 97.1 L (98-107) mmol/L Carbon Dioxide 27 (22-30) mmol/L BUN 24 H (9-20) mg/dL Creatinine 1.1 (0.8-1.5) mg/dL Glucose 113 H (75-100) mg/dL Calcium 9.0 (8.4-10.2) mg/dL AST 23 (5-40) units/L ALT 29 (7-56) units/L Alkaline Phosphatase 47 (35-129) units/L Total Protein 7.2 (6.3-8.2) g/dL Albumin 3.5 L (3.9-5) g/dL
[2016-12-06] MEDS: NON-FORMULARY (Brimonidine Tartrate [Alphagan P 0.1%] 1 DROP) INTRAOCULA SCH ×2 (12:25→22:09)
[2016-12-06] MEDS ORDERED: APRESOLINE IV PRN (14:41)
[2016-12-06] MEDS ORDERED: D50W (25GM) IV PRN (14:53)
[2016-12-06] MEDS: HEPARIN SUB-Q SCH ×2 (16:03→21:47)
[2016-12-06] MEDS: NOVOLOG SUB-Q SCH ×2 (17:10→22:34)
[2016-12-06] MEDS: LUMIGAN 0.01% OP SCH (22:11)
--- NOTE | 2016-12-06 22:37 | Progress Note ---
Assessment and Plan 1. Syncope likely secondary to dehydration improving 2. CAD small vessel coronary disease of the circumflex and right coronary arteries, not amenable to a cutaneous coronary intervention or coronary bypass on medical therapy no anginal symptoms currently 3. HTN well controlled 4. Hypokalemia resolved Plan Continue medical therapy with ASA, BB, statin, and ARB 2D echo pending If patient has anginal symptoms add Ranexa Subjective Date of service: 12/07/16 Principal diagnosis: syncope Interval history: No acute events. Resting comfortably. No chest pain or SOB. Objective Vital Signs Temp Pulse Pulse Pulse Pulse Pulse Pulse 12/06/16 22:11 107 H 12/06/16 22:00 113 H 12/06/16 21:51 112 H 12/06/16 21:49 110 H 12/06/16 21:41 110 H 12/06/16 21:31 112 H 12/06/16 21:21 110 H 12/06/16 21:11 110 H 12/06/16 21:00 106 H 12/06/16 20:51 108 H 12/06/16 20:41 107 H 12/06/16 20:31 106 H 12/06/16 20:21 106 H 12/06/16 20:11 107 H 12/06/16 20:00 99.4 F 96 H 12/06/16 19:58 108 H 108 H 108 H 108 H 12/06/16 19:51 96 H 12/06/16 19:41 99 H 12/06/16 19:31 97 H 12/06/16 19:21 98 H 12/06/16 19:11 99 H 12/06/16 19:00 99 H 12/06/16 18:51 101 H 12/06/16 18:41 101 H 12/06/16 18:31 104 H 12/06/16 18:21 105 H 12/06/16 18:11 114 H 12/06/16 18:00 107 H 12/06/16 17:51 112 H 12/06/16 17:41 108 H 12/06/16 17:31 107 H 12/06/16 17:21 104 H 12/06/16 17:11 104 H 12/06/16 17:00 101 H 12/06/16 16:51 101 H 12/06/16 16:40 99 H 12/06/16 16:31 101 H 12/06/16 16:21 103 H 12/06/16 16:11 103 H 12/06/16 16:00 99.4 F 98 H 12/06/16 15:51 96 H 12/06/16 15:41 96 H 12/06/16 15:31 99 H 12/06/16 15:21 99 H 12/06/16 15:11 98 H 12/06/16 15:00 98 H 12/06/16 14:51 101 H 12/06/16 14:41 101 H 12/06/16 14:31 97 H 12/06/16 14:21 101 H 12/06/16 14:11 102 H 12/06/16 14:00 104 H 12/06/16 13:51 99 H 12/06/16 13:41 99 H 12/06/16 13:31 97 H 12/06/16 13:21 104 H 12/06/16 13:11 102 H 12/06/16 13:01 107 H 12/06/16 12:51 97 H 12/06/16 12:41 99 H 12/06/16 12:31 91 H 12/06/16 12:21 91 H 12/06/16 12:11 95 H 12/06/16 12:01 93 H 12/06/16 12:00 98.0 F 12/06/16 11:51 96 H 12/06/16 11:41 94 H 12/06/16 11:31 92 H 12/06/16 11:21 95 H 12/06/16 11:11 97 H 12/06/16 11:01 99 H 12/06/16 10:51 107 H 12/06/16 10:48 93 H 12/06/16 10:47 93 H 12/06/16 10:41 98 H 12/06/16 10:31 97 H 12/06/16 10:21 95 H 12/06/16 10:11 97 H 12/06/16 10:07 107 H 12/06/16 10:00 101 H 12/06/16 09:51 106 H 12/06/16 09:41 103 H 12/06/16 09:31 105 H 12/06/16 09:21 96 H 12/06/16 09:11 96 H 12/06/16 09:00 94 H 12/06/16 08:51 92 H 12/06/16 08:41 95 H 12/06/16 08:31 88 12/06/16 08:21 95 H 12/06/16 08:11 93 H 12/06/16 08:00 98.0 F 92 H 12/06/16 07:51 100 H 12/06/16 07:41 97 H 12/06/16 07:31 99 H 12/06/16 07:28 12/06/16 07:21 94 H 12/06/16 07:11 96 H 12/06/16 07:01 100 H 12/06/16 06:51 107 H 12/06/16 06:44 12/06/16 06:31 90 12/06/16 06:21 91 H 12/06/16 06:11 92 H 12/06/16 06:00 92 H 12/06/16 05:31 95 H 12/06/16 05:19 100 H 12/06/16 04:31 93 H 12/06/16 04:01 90 12/06/16 04:00 89 12/06/16 03:59 88 12/06/16 03:57 90 12/06/16 03:55 95 H 12/06/16 03:53 94 H 12/06/16 03:51 93 H 12/06/16 03:49 92 H 12/06/16 03:47 92 H 12/06/16 03:45 92 H 12/06/16 03:43 92 H 12/06/16 03:41 93 H 12/06/16 03:39 94 H 12/06/16 03:37 96 H 12/06/16 03:35 96 H 12/06/16 03:33 96 H 12/06/16 03:31 97 H 12/06/16 03:29 96 H 12/06/16 03:27 96 H 12/06/16 03:25 95 H 12/06/16 03:23 97 H 12/06/16 03:21 93 H 12/06/16 03:19 93 H 12/06/16 03:17 93 H 12/06/16 03:15 94 H 12/06/16 03:13 97 H 12/06/16 03:11 95 H 12/06/16 03:09 93 H 12/06/16 03:07 96 H 12/06/16 03:05 92 H 12/06/16 03:03 96 H 12/06/16 03:01 97 H 12/06/16 03:00 97 H 12/06/16 02:59 92 H 12/06/16 02:57 94 H 12/06/16 02:55 94 H 12/06/16 02:53 95 H 12/06/16 02:51 98 H 12/06/16 02:49 93 H 12/06/16 02:47 105 H 12/06/16 02:45 95 H 12/06/16 02:43 96 H 12/06/16 02:41 93 H 12/06/16 02:39 93 H 12/06/16 02:37 95 H 12/06/16 02:35 93 H 12/06/16 02:33 91 H 12/06/16 02:31 93 H 12/06/16 02:29 92 H 12/06/16 02:27 103 H 12/06/16 02:25 94 H 12/06/16 02:23 94 H 12/06/16 02:21 93 H 12/06/16 02:19 93 H 12/06/16 02:17 94 H 12/06/16 02:15 93 H 12/06/16 02:13 94 H 12/06/16 02:11 96 H 12/06/16 02:09 94 H 12/06/16 02:07 93 H 12/06/16 02:05 94 H 12/06/16 02:03 95 H 12/06/16 02:01 94 H 12/06/16 01:59 92 H 12/06/16 01:57 93 H 12/06/16 01:55 93 H 12/06/16 01:53 95 H 12/06/16 01:51 96 H 12/06/16 01:49 12/06/16 01:47 12/06/16 01:45 12/06/16 01:43 12/06/16 01:41 12/06/16 01:39 12/06/16 01:37 12/06/16 01:35 12/06/16 01:33 12/06/16 01:31 12/06/16 01:29 12/06/16 01:27 12/06/16 01:25 12/06/16 01:23 12/06/16 01:21 12/06/16 01:19 12/06/16 01:17 12/06/16 01:15 12/06/16 01:13 12/06/16 01:11 12/06/16 01:09 12/06/16 01:07 12/06/16 01:05 12/06/16 01:03 12/06/16 01:01 12/06/16 01:00 12/06/16 00:59 12/06/16 00:57 12/06/16 00:55 12/06/16 00:53 12/06/16 00:51 12/06/16 00:49 12/06/16 00:47 12/06/16 00:45 12/06/16 00:43 12/06/16 00:41 12/06/16 00:39 12/06/16 00:37 12/06/16 00:35 12/06/16 00:33 12/06/16 00:31 12/06/16 00:29 12/06/16 00:27 12/06/16 00:25 12/06/16 00:23 12/06/16 00:21 12/06/16 00:19 12/06/16 00:17 12/06/16 00:15 12/06/16 00:13 12/06/16 00:11 12/06/16 00:09 12/06/16 00:07 12/06/16 00:05 12/06/16 00:03 12/06/16 00:01 12/06/16 00:00 12/05/16 23:59 12/05/16 23:57 12/05/16 23:55 12/05/16 23:53 12/05/16 23:51 12/05/16 23:49 12/05/16 23:47 12/05/16 23:45 12/05/16 23:43 12/05/16 23:41 12/05/16 23:39 12/05/16 23:37 12/05/16 23:35 12/05/16 23:33 12/05/16 23:31 12/05/16 23:29 12/05/16 23:27 12/05/16 23:25 12/05/16 23:23 12/05/16 23:21 12/05/16 23:19 12/05/16 23:17 12/05/16 23:15 12/05/16 23:13 12/05/16 23:11 12/05/16 23:09 12/05/16 23:07 12/05/16 23:05 12/05/16 23:03 12/05/16 23:01 12/05/16 23:00 12/05/16 22:59 12/05/16 22:57 12/05/16 22:55 12/05/16 22:53 12/05/16 22:51 12/05/16 22:49 12/05/16 22:47 12/05/16 22:45 12/05/16 22:43 12/05/16 22:41 12/05/16 22:39 12/05/16 22:37 Pulse Pulse Resp BP BP BP BP 12/06/16 22:11 26 H 144/85 12/06/16 22:00 26 H 144/85 12/06/16 21:51 31 H 145/76 12/06/16 21:49 145/76 12/06/16 21:41 29 H 145/76 12/06/16 21:31 27 H 145/76 12/06/16 21:21 26 H 145/76 12/06/16 21:11 29 H 145/76 12/06/16 21:00 28 H 145/76 12/06/16 20:51 26 H 143/77 12/06/16 20:41 24 143/77 12/06/16 20:31 25 H 143/77 12/06/16 20:21 25 H 143/77 12/06/16 20:11 25 H 143/77 12/06/16 20:00 24 143/77 12/06/16 19:58 16 12/06/16 19:51 22 123/75 12/06/16 19:41 25 H 123/75 12/06/16 19:31 26 H 123/75 12/06/16 19:21 24 123/75 12/06/16 19:11 26 H 123/75 12/06/16 19:00 25 H 123/75 12/06/16 18:51 21 141/79 12/06/16 18:41 25 H 141/79 12/06/16 18:31 26 H 141/79 12/06/16 18:21 25 H 141/79 12/06/16 18:11 34 H 141/79 12/06/16 18:00 31 H 141/79 12/06/16 17:51 40 H 133/77 12/06/16 17:41 28 H 133/77 12/06/16 17:31 38 H 133/77 12/06/16 17:21 34 H 133/77 12/06/16 17:11 25 H 133/77 12/06/16 17:00 31 H 138/80 12/06/16 16:51 26 H 12/06/16 16:40 24 133/77 12/06/16 16:31 26 H 115/65 12/06/16 16:21 26 H 115/65 12/06/16 16:11 29 H 133/77 12/06/16 16:00 23 133/77 12/06/16 15:51 18 115/65 12/06/16 15:41 17 115/65 12/06/16 15:31 22 115/65 12/06/16 15:21 25 H 115/65 12/06/16 15:11 27 H 115/65 12/06/16 15:00 25 H 115/65 12/06/16 14:51 25 H 108/66 12/06/16 14:41 25 H 108/66 12/06/16 14:31 17 108/66 12/06/16 14:21 18 108/66 12/06/16 14:11 20 108/66 12/06/16 14:00 29 H 108/66 12/06/16 13:51 17 96/69 12/06/16 13:41 18 96/69 12/06/16 13:31 18 96/69 12/06/16 13:21 22 96/69 12/06/16 13:11 26 H 96/69 12/06/16 13:01 33 H 96/69 12/06/16 12:51 28 H 96/69 12/06/16 12:41 29 H 96/69 12/06/16 12:31 19 96/69 12/06/16 12:21 19 96/69 12/06/16 12:11 17 188/97 12/06/16 12:01 18 188/97 12/06/16 12:00 12/06/16 11:51 16 188/97 12/06/16 11:41 17 188/97 12/06/16 11:31 21 188/97 12/06/16 11:21 24 188/97 12/06/16 11:11 25 H 188/97 12/06/16 11:01 24 188/97 12/06/16 10:51 26 H 188/97 12/06/16 10:48 176/93 12/06/16 10:47 176/93 12/06/16 10:41 24 176/93 12/06/16 10:31 26 H 176/93 12/06/16 10:21 29 H 176/93 12/06/16 10:11 29 H 176/93 12/06/16 10:07 103 H 115 H 176/93 200/100 188/97 12/06/16 10:00 31 H 176/93 12/06/16 09:51 31 H 170/89 12/06/16 09:41 29 H 170/89 12/06/16 09:31 19 170/89 12/06/16 09:21 26 H 170/89 12/06/16 09:11 33 H 170/89 12/06/16 09:00 24 170/89 12/06/16 08:51 24 162/75 12/06/16 08:41 22 162/75 12/06/16 08:31 19 175/83 12/06/16 08:21 24 175/83 12/06/16 08:11 25 H 175/83 12/06/16 08:00 22 162/75 12/06/16 07:51 32 H 175/83 12/06/16 07:41 27 H 175/83 12/06/16 07:31 27 H 175/83 12/06/16 07:28 12/06/16 07:21 23 175/83 12/06/16 07:11 24 175/83 12/06/16 07:01 27 H 177/80 12/06/16 06:51 20 177/80 12/06/16 06:44 12/06/16 06:31 23 159/89 12/06/16 06:21 23 159/89 12/06/16 06:11 23 159/89 12/06/16 06:00 22 159/89 12/06/16 05:31 25 H 164/94 12/06/16 05:19 30 H 12/06/16 04:31 26 H 148/85 12/06/16 04:01 25 H 139/69 12/06/16 04:00 23 139/69 12/06/16 03:59 22 148/85 12/06/16 03:57 25 H 148/85 12/06/16 03:55 20 148/85 12/06/16 03:53 21 148/85 12/06/16 03:51 26 H 148/85 12/06/16 03:49 27 H 148/85 12/06/16 03:47 25 H 148/85 12/06/16 03:45 27 H 148/85 12/06/16 03:43 26 H 148/85 12/06/16 03:41 27 H 148/85 12/06/16 03:39 19 148/85 12/06/16 03:37 25 H 148/85 12/06/16 03:35 27 H 148/85 12/06/16 03:33 28 H 148/85 12/06/16 03:31 27 H 148/85 12/06/16 03:29 27 H 148/85 12/06/16 03:27 24 148/85 12/06/16 03:25 26 H 148/85 12/06/16 03:23 23 148/85 12/06/16 03:21 27 H 148/85 12/06/16 03:19 26 H 148/85 12/06/16 03:17 26 H 148/85 12/06/16 03:15 26 H 148/85 12/06/16 03:13 30 H 148/85 12/06/16 03:11 27 H 148/85 12/06/16 03:09 27 H 148/85 12/06/16 03:07 25 H 148/85 12/06/16 03:05 25 H 148/85 12/06/16 03:03 27 H 148/85 12/06/16 03:01 26 H 148/85 12/06/16 03:00 25 H 148/85 12/06/16 02:59 27 H 140/83 12/06/16 02:57 31 H 140/83 12/06/16 02:55 24 140/83 12/06/16 02:53 25 H 140/83 12/06/16 02:51 31 H 140/83 12/06/16 02:49 28 H 140/83 12/06/16 02:47 33 H 140/83 12/06/16 02:45 29 H 140/83 12/06/16 02:43 25 H 140/83 12/06/16 02:41 29 H 140/83 12/06/16 02:39 27 H 140/83 12/06/16 02:37 31 H 140/83 12/06/16 02:35 24 148/89 12/06/16 02:33 24 148/89 12/06/16 02:31 25 H 148/89 12/06/16 02:29 28 H 148/89 12/06/16 02:27 25 H 148/89 12/06/16 02:25 24 148/89 12/06/16 02:23 24 148/89 12/06/16 02:21 26 H 148/89 12/06/16 02:19 24 148/89 12/06/16 02:17 27 H 148/89 12/06/16 02:15 18 148/89 12/06/16 02:13 22 148/89 12/06/16 02:11 25 H 148/89 12/06/16 02:09 28 H 148/89 12/06/16 02:07 24 148/89 12/06/16 02:05 25 H 148/89 12/06/16 02:03 23 148/89 12/06/16 02:01 28 H 148/89 12/06/16 01:59 24 148/89 12/06/16 01:57 21 148/89 12/06/16 01:55 23 148/89 12/06/16 01:53 21 148/89 12/06/16 01:51 21 148/89 12/06/16 01:49 28 H 148/89 12/06/16 01:47 29 H 148/89 12/06/16 01:45 23 148/89 12/06/16 01:43 23 148/89 12/06/16 01:41 22 148/89 12/06/16 01:39 23 148/89 12/06/16 01:37 24 148/89 12/06/16 01:35 22 148/89 12/06/16 01:33 24 148/89 12/06/16 01:31 22 148/89 12/06/16 01:29 24 148/89 12/06/16 01:27 25 H 148/89 12/06/16 01:25 25 H 148/89 12/06/16 01:23 26 H 148/89 12/06/16 01:21 26 H 148/89 12/06/16 01:19 29 H 148/89 12/06/16 01:17 23 148/89 12/06/16 01:15 25 H 148/89 12/06/16 01:13 24 148/89 12/06/16 01:11 23 148/89 12/06/16 01:09 24 148/89 12/06/16 01:07 26 H 148/89 12/06/16 01:05 25 H 148/89 12/06/16 01:03 28 H 148/89 12/06/16 01:01 29 H 148/89 12/06/16 01:00 28 H 148/89 12/06/16 00:59 26 H 156/81 12/06/16 00:57 24 156/81 12/06/16 00:55 25 H 156/81 12/06/16 00:53 24 156/81 12/06/16 00:51 25 H 156/81 12/06/16 00:49 23 156/81 12/06/16 00:47 25 H 156/81 12/06/16 00:45 28 H 156/81 12/06/16 00:43 27 H 156/81 12/06/16 00:41 24 156/81 12/06/16 00:39 26 H 156/81 12/06/16 00:37 23 156/81 12/06/16 00:35 24 156/81 12/06/16 00:33 28 H 156/81 12/06/16 00:31 25 H 156/81 12/06/16 00:29 26 H 156/81 12/06/16 00:27 23 156/81 12/06/16 00:25 25 H 156/81 12/06/16 00:23 24 156/81 12/06/16 00:21 25 H 156/81 12/06/16 00:19 25 H 156/81 12/06/16 00:17 22 156/81 12/06/16 00:15 25 H 156/81 12/06/16 00:13 27 H 156/81 12/06/16 00:11 25 H 156/81 12/06/16 00:09 20 156/81 12/06/16 00:07 24 156/81 12/06/16 00:05 23 156/81 12/06/16 00:03 25 H 156/81 12/06/16 00:01 23 156/81 12/06/16 00:00 25 H 156/81 12/05/16 23:59 26 H 154/85 12/05/16 23:57 27 H 154/85 12/05/16 23:55 22 154/85 12/05/16 23:53 23 154/85 12/05/16 23:51 22 154/85 12/05/16 23:49 22 154/85 12/05/16 23:47 29 H 154/85 12/05/16 23:45 26 H 154/85 12/05/16 23:43 25 H 154/85 12/05/16 23:41 24 154/85 12/05/16 23:39 24 154/85 12/05/16 23:37 24 154/85 12/05/16 23:35 26 H 154/85 12/05/16 23:33 20 154/85 12/05/16 23:31 24 154/85 12/05/16 23:29 25 H 154/85 12/05/16 23:27 26 H 154/85 12/05/16 23:25 26 H 154/85 12/05/16 23:23 27 H 154/85 12/05/16 23:21 25 H 154/85 12/05/16 23:19 26 H 154/85 12/05/16 23:17 27 H 154/85 12/05/16 23:15 27 H 154/85 12/05/16 23:13 25 H 154/85 12/05/16 23:11 26 H 154/85 12/05/16 23:09 26 H 154/85 12/05/16 23:07 28 H 154/85 12/05/16 23:05 25 H 154/85 12/05/16 23:03 25 H 154/85 12/05/16 23:01 30 H 154/85 12/05/16 23:00 26 H 154/85 12/05/16 22:59 24 129/85 12/05/16 22:57 34 H 129/85 12/05/16 22:55 34 H 129/85 12/05/16 22:53 28 H 129/85 12/05/16 22:51 28 H 129/85 12/05/16 22:49 25 H 129/85 12/05/16 22:47 24 129/85 12/05/16 22:45 25 H 129/85 12/05/16 22:43 28 H 129/85 12/05/16 22:41 29 H 129/85 12/05/16 22:39 27 H 129/85 12/05/16 22:37 21 129/85 Pulse Ox 12/06/16 22:11 98 12/06/16 22:00 97 12/06/16 21:51 97 12/06/16 21:49 12/06/16 21:41 97 12/06/16 21:31 98 12/06/16 21:21 97 12/06/16 21:11 97 12/06/16 21:00 97 12/06/16 20:51 97 12/06/16 20:41 96 12/06/16 20:31 96 12/06/16 20:21 96 12/06/16 20:11 98 12/06/16 20:00 100 12/06/16 19:58 98 12/06/16 19:51 99 12/06/16 19:41 99 12/06/16 19:31 99 12/06/16 19:21 99 12/06/16 19:11 99 12/06/16 19:00 97 12/06/16 18:51 99 12/06/16 18:41 99 12/06/16 18:31 99 12/06/16 18:21 99 12/06/16 18:11 97 12/06/16 18:00 97 12/06/16 17:51 99 12/06/16 17:41 97 12/06/16 17:31 96 12/06/16 17:21 97 12/06/16 17:11 97 12/06/16 17:00 98 12/06/16 16:51 99 12/06/16 16:40 99 12/06/16 16:31 100 12/06/16 16:21 99 12/06/16 16:11 99 12/06/16 16:00 98 12/06/16 15:51 98 12/06/16 15:41 98 12/06/16 15:31 98 12/06/16 15:21 99 12/06/16 15:11 100 12/06/16 15:00 99 12/06/16 14:51 99 12/06/16 14:41 99 12/06/16 14:31 99 12/06/16 14:21 99 12/06/16 14:11 99 12/06/16 14:00 99 12/06/16 13:51 99 12/06/16 13:41 98 12/06/16 13:31 99 12/06/16 13:21 98 12/06/16 13:11 98 12/06/16 13:01 96 12/06/16 12:51 98 12/06/16 12:41 98 12/06/16 12:31 100 12/06/16 12:21 100 12/06/16 12:11 100 12/06/16 12:01 100 12/06/16 12:00 12/06/16 11:51 99 12/06/16 11:41 99 12/06/16 11:31 98 12/06/16 11:21 99 12/06/16 11:11 98 12/06/16 11:01 98 12/06/16 10:51 97 12/06/16 10:48 12/06/16 10:47 12/06/16 10:41 96 12/06/16 10:31 96 12/06/16 10:21 96 12/06/16 10:11 97 12/06/16 10:07 12/06/16 10:00 99 12/06/16 09:51 98 12/06/16 09:41 98 12/06/16 09:31 96 12/06/16 09:21 97 12/06/16 09:11 99 12/06/16 09:00 99 12/06/16 08:51 99 12/06/16 08:41 98 12/06/16 08:31 97 12/06/16 08:21 98 12/06/16 08:11 98 12/06/16 08:00 96 12/06/16 07:51 99 12/06/16 07:41 99 12/06/16 07:31 96 12/06/16 07:28 99 12/06/16 07:21 99 12/06/16 07:11 99 12/06/16 07:01 98 12/06/16 06:51 98 12/06/16 06:44 97 12/06/16 06:31 96 12/06/16 06:21 96 12/06/16 06:11 96 12/06/16 06:00 95 12/06/16 05:31 98 12/06/16 05:19 98 12/06/16 04:31 99 12/06/16 04:01 100 12/06/16 04:00 100 12/06/16 03:59 100 12/06/16 03:57 100 12/06/16 03:55 100 12/06/16 03:53 99 12/06/16 03:51 99 12/06/16 03:49 99 12/06/16 03:47 100 12/06/16 03:45 100 12/06/16 03:43 100 12/06/16 03:41 100 12/06/16 03:39 99 12/06/16 03:37 98 12/06/16 03:35 99 12/06/16 03:33 98 12/06/16 03:31 98 12/06/16 03:29 99 12/06/16 03:27 99 12/06/16 03:25 99 12/06/16 03:23 99 12/06/16 03:21 100 12/06/16 03:19 99 12/06/16 03:17 100 12/06/16 03:15 100 12/06/16 03:13 99 12/06/16 03:11 100 12/06/16 03:09 99 12/06/16 03:07 100 12/06/16 03:05 100 12/06/16 03:03 100 12/06/16 03:01 100 12/06/16 03:00 100 12/06/16 02:59 100 12/06/16 02:57 100 12/06/16 02:55 100 12/06/16 02:53 99 12/06/16 02:51 99 12/06/16 02:49 100 12/06/16 02:47 97 12/06/16 02:45 98 12/06/16 02:43 99 12/06/16 02:41 100 12/06/16 02:39 100 12/06/16 02:37 100 12/06/16 02:35 100 12/06/16 02:33 100 12/06/16 02:31 100 12/06/16 02:29 100 12/06/16 02:27 97 12/06/16 02:25 99 12/06/16 02:23 99 12/06/16 02:21 100 12/06/16 02:19 100 12/06/16 02:17 100 12/06/16 02:15 100 12/06/16 02:13 100 12/06/16 02:11 100 12/06/16 02:09 100 12/06/16 02:07 100 12/06/16 02:05 100 12/06/16 02:03 100 12/06/16 02:01 100 12/06/16 01:59 100 12/06/16 01:57 100 12/06/16 01:55 100 12/06/16 01:53 100 12/06/16 01:51 100 12/06/16 01:49 100 12/06/16 01:47 100 12/06/16 01:45 100 12/06/16 01:43 100 12/06/16 01:41 100 12/06/16 01:39 100 12/06/16 01:37 100 12/06/16 01:35 100 12/06/16 01:33 100 12/06/16 01:31 100 12/06/16 01:29 100 12/06/16 01:27 100 12/06/16 01:25 100 12/06/16 01:23 99 12/06/16 01:21 99 12/06/16 01:19 100 12/06/16 01:17 100 12/06/16 01:15 100 12/06/16 01:13 100 12/06/16 01:11 100 12/06/16 01:09 100 12/06/16 01:07 100 12/06/16 01:05 100 12/06/16 01:03 100 12/06/16 01:01 100 12/06/16 01:00 100 12/06/16 00:59 100 12/06/16 00:57 99 12/06/16 00:55 100 12/06/16 00:53 99 12/06/16 00:51 99 12/06/16 00:49 100 12/06/16 00:47 100 12/06/16 00:45 100 12/06/16 00:43 100 12/06/16 00:41 100 12/06/16 00:39 100 12/06/16 00:37 100 12/06/16 00:35 100 12/06/16 00:33 99 12/06/16 00:31 100 12/06/16 00:29 100 12/06/16 00:27 100 12/06/16 00:25 100 12/06/16 00:23 100 12/06/16 00:21 100 12/06/16 00:19 100 12/06/16 00:17 100 12/06/16 00:15 100 12/06/16 00:13 100 12/06/16 00:11 100 12/06/16 00:09 100 12/06/16 00:07 100 12/06/16 00:05 100 12/06/16 00:03 100 12/06/16 00:01 100 12/06/16 00:00 100 12/05/16 23:59 99 12/05/16 23:57 100 12/05/16 23:55 99 12/05/16 23:53 99 12/05/16 23:51 99 12/05/16 23:49 99 12/05/16 23:47 99 12/05/16 23:45 100 12/05/16 23:43 100 12/05/16 23:41 99 12/05/16 23:39 99 12/05/16 23:37 99 12/05/16 23:35 100 12/05/16 23:33 99 12/05/16 23:31 99 12/05/16 23:29 100 12/05/16 23:27 100 12/05/16 23:25 99 12/05/16 23:23 99 12/05/16 23:21 99 12/05/16 23:19 100 12/05/16 23:17 100 12/05/16 23:15 100 12/05/16 23:13 100 12/05/16 23:11 100 12/05/16 23:09 100 12/05/16 23:07 12/05/16 23:05 12/05/16 23:03 12/05/16 23:01 12/05/16 23:00 12/05/16 22:59 12/05/16 22:57 12/05/16 22:55 12/05/16 22:53 12/05/16 22:51 12/05/16 22:49 12/05/16 22:47 12/05/16 22:45 12/05/16 22:43 12/05/16 22:41 12/05/16 22:39 12/05/16 22:37 100 - Physical Examination HEENT: Positive: PERRL Neck: Positive: trachea midline - Labs and Meds Cardiac Enzymes 12/06/16 Range/Units 04:09 AST 23 (5-40) units/L CBC 12/06/16 Range/Units 04:09 WBC 5.4 (4.5-11.0) K/mm3 RBC 4.67 (3.65-5.03) M/mm3 Hgb 12.8 (11.8-15.2) gm/dl Hct 40.2 (35.5-45.6) % Plt Count 215 (140-440) K/mm3 Comprehensive Metabolic Panel 12/06/16 Range/Units 04:09 Sodium 139 (137-145) mmol/L Potassium 4.2 D (3.6-5.0) mmol/L Chloride 97.1 L (98-107) mmol/L Carbon Dioxide 27 (22-30) mmol/L BUN 24 H (9-20) mg/dL Creatinine 1.1 (0.8-1.5) mg/dL Glucose 113 H (75-100) mg/dL Calcium 9.0 (8.4-10.2) mg/dL AST 23 (5-40) units/L ALT 29 (7-56) units/L Alkaline Phosphatase 47 (35-129) units/L Total Protein 7.2 (6.3-8.2) g/dL Albumin 3.5 L (3.9-5) g/dL
[2016-12-07] MEDS: HEPARIN SUB-Q SCH ×3 (06:55→22:06)
[2016-12-07] MEDS: NOVOLOG SUB-Q SCH ×4 (07:51→23:45)
[2016-12-07] MEDS: NON-FORMULARY (Brimonidine Tartrate [Alphagan P 0.1%] 1 DROP) INTRAOCULA SCH ×2 (10:01→23:24)
[2016-12-07] MEDS: TOPROL XL PO SCH (10:02)
[2016-12-07] MEDS: COZAAR PO SCH (10:03)
[2016-12-07] MEDS: HALFPRIN EC PO SCH (10:04)
[2016-12-07] MEDS: PLAVIX PO SCH (10:04)
[2016-12-07] MEDS: FLOMAX PO SCH (10:05)
[2016-12-07] MEDS: NORVASC PO SCH (10:05)
[2016-12-07] MEDS: CATAPRES PO SCH ×3 (10:06→22:19)
--- NOTE | 2016-12-07 12:17 | Progress Note ---
Assessment and Plan 71 y/o male with syncopal event, possible heat exhaustion. 1. Check orthostatics on patient, these were positive. Will give more fluid. 2. Continue home medication therapy. 3. Per and patient, he has had at least 5 syncopal episodes. May need to have medication readjusted. 4. Wean FiO2 5. Appears stable for transfer to floor, should have moved yesterday. Subjective Date of service: 12/07/16 Principal diagnosis: syncope Interval history: No acute events. Breathing stable. No labs checked this am. Objective Vital Signs - 12hr 12/07/16 12/07/16 12/07/16 00:21 00:31 00:41 Temperature Pulse Rate 97 H 91 H 97 H Respiratory 17 23 19 Rate Blood Pressure 134/77 134/77 134/77 O2 Sat by Pulse 99 99 99 Oximetry 12/07/16 12/07/16 12/07/16 00:51 01:00 01:11 Temperature Pulse Rate 100 H 90 97 H Respiratory 19 21 18 Rate Blood Pressure 134/77 130/74 130/74 O2 Sat by Pulse 99 99 98 Oximetry 12/07/16 12/07/16 12/07/16 01:21 01:31 01:41 Temperature Pulse Rate 97 H 95 H 104 H Respiratory 17 19 26 H Rate Blood Pressure 130/74 130/74 130/74 O2 Sat by Pulse 99 99 96 Oximetry 12/07/16 12/07/16 12/07/16 01:51 02:00 02:11 Temperature Pulse Rate 100 H 102 H 100 H Respiratory 22 28 H 20 Rate Blood Pressure 130/74 132/84 132/84 O2 Sat by Pulse 98 96 98 Oximetry 12/07/16 12/07/16 12/07/16 02:21 02:31 02:41 Temperature Pulse Rate 98 H 100 H 103 H Respiratory 20 25 H 18 Rate Blood Pressure 132/84 132/84 132/84 O2 Sat by Pulse 98 99 97 Oximetry 12/07/16 12/07/16 12/07/16 02:51 03:00 03:11 Temperature Pulse Rate 109 H 103 H 102 H Respiratory 18 16 18 Rate Blood Pressure 132/84 107/69 107/69 O2 Sat by Pulse 96 98 98 Oximetry 12/07/16 12/07/16 12/07/16 03:21 03:26 03:31 Temperature 100.3 F H Pulse Rate 102 H 101 H Respiratory 18 17 Rate Blood Pressure 107/69 107/69 O2 Sat by Pulse 97 98 Oximetry 12/07/16 12/07/16 12/07/16 03:41 03:51 04:00 Temperature Pulse Rate 100 H 100 H 98 H Respiratory 18 17 22 Rate Blood Pressure 107/69 107/69 113/66 O2 Sat by Pulse 98 98 97 Oximetry 12/07/16 12/07/16 12/07/16 04:11 04:21 04:31 Temperature Pulse Rate 99 H 98 H 100 H Respiratory 19 18 17 Rate Blood Pressure 113/66 113/66 113/66 O2 Sat by Pulse 97 97 97 Oximetry 12/07/16 12/07/16 12/07/16 04:41 04:51 05:00 Temperature Pulse Rate 99 H 98 H 93 H Respiratory 24 25 H 21 Rate Blood Pressure 113/66 113/66 131/75 O2 Sat by Pulse 96 96 96 Oximetry 12/07/16 12/07/16 12/07/16 05:11 05:21 05:31 Temperature Pulse Rate 97 H 97 H 97 H Respiratory 24 25 H 23 Rate Blood Pressure 131/75 131/75 131/75 O2 Sat by Pulse 96 96 98 Oximetry 12/07/16 12/07/16 12/07/16 05:41 05:51 06:00 Temperature Pulse Rate 95 H 96 H 100 H Respiratory 26 H 16 22 Rate Blood Pressure 131/75 131/75 125/83 O2 Sat by Pulse 97 97 98 Oximetry 12/07/16 12/07/16 12/07/16 06:11 06:21 06:31 Temperature Pulse Rate 97 H 100 H 97 H Respiratory 16 15 17 Rate Blood Pressure 125/83 125/83 125/83 O2 Sat by Pulse 96 96 96 Oximetry 12/07/16 12/07/16 12/07/16 06:41 06:51 07:00 Temperature Pulse Rate 106 H 111 H 104 H Respiratory 29 H 31 H 26 H Rate Blood Pressure 125/83 125/83 134/81 O2 Sat by Pulse 96 96 98 Oximetry 12/07/16 12/07/16 12/07/16 07:11 07:21 07:31 Temperature Pulse Rate 92 H 100 H 100 H Respiratory 19 16 16 Rate Blood Pressure 134/81 134/81 134/81 O2 Sat by Pulse 97 97 98 Oximetry 12/07/16 12/07/16 12/07/16 07:40 07:41 07:51 Temperature Pulse Rate 99 H 97 H Respiratory 26 H 26 H 22 Rate Blood Pressure 134/81 134/81 O2 Sat by Pulse 98 98 98 Oximetry 12/07/16 12/07/16 12/07/16 08:00 08:11 08:21 Temperature 98.7 F Pulse Rate 98 H 99 H 98 H Respiratory 26 H 28 H 25 H Rate Blood Pressure 133/77 133/77 133/77 O2 Sat by Pulse 97 97 98 Oximetry 12/07/16 12/07/16 12/07/16 08:31 08:41 08:50 Temperature Pulse Rate 107 H 102 H 103 H Respiratory 26 H 28 H 25 H Rate Blood Pressure 133/77 133/77 133/77 O2 Sat by Pulse 98 96 98 Oximetry 12/07/16 12/07/16 12/07/16 09:00 09:11 09:21 Temperature Pulse Rate 106 H 103 H 100 H Respiratory 24 16 18 Rate Blood Pressure 130/77 130/77 130/77 O2 Sat by Pulse 98 99 99 Oximetry 12/07/16 12/07/16 12/07/16 09:31 09:41 09:51 Temperature Pulse Rate 101 H 96 H 105 H Respiratory 16 17 22 Rate Blood Pressure 130/77 130/77 130/77 O2 Sat by Pulse 99 98 100 Oximetry 12/07/16 12/07/16 12/07/16 10:00 10:02 10:03 Temperature Pulse Rate 107 H 108 H 107 H Respiratory 32 H Rate Blood Pressure 137/89 130/77 130/77 O2 Sat by Pulse 99 Oximetry 12/07/16 12/07/16 10:05 10:06 Temperature Pulse Rate 107 H 107 H Respiratory Rate Blood Pressure 130/77 130/77 O2 Sat by Pulse Oximetry Constitutional: no acute distress, alert Eyes: non-icteric ENT: oropharynx dry Neck: supple Effort: mildly labored Ascultation: Bilateral: clear Percussion: Bilateral: not dull Tactile fremitus: Bilateral: normal Cardiovascular: regular rate and rhythm Gastrointestinal: normoactive bowel sounds, soft, non-tender Integumentary: normal Extremities: pink and warm Neurologic: normal mental status, non-focal exam Psychiatric: mood appropriate, affect normal CBC and BMP: 12/06/16 04:09 12/06/16 04:09 ABG, PT/INR, D-dimer: PT/INR, D-dimer PT 13.4 Sec. (12.2-14.9) 12/05/16 12:08 INR 0.97 (0.87-1.13) 12/05/16 12:08 D-Dimer 565.35 ng/mlDDU (0-234) H 12/05/16 12:08 Abnormal lab findings: Abnormal Labs 12/05/16 12/06/16 12/06/16 21:26 04:09 04:09 MCH 27 L Seg Neuts % (Manual) 35.0 L Lymphocytes % (Manual) 9.0 L Lymphocytes # (Manual) 0.5 L Chloride 97.1 L BUN 24 H Glucose 113 H POC Glucose Lactic Acid 3.70 H* Albumin 3.5 L 12/06/16 12/06/16 12/06/16 07:07 10:08 12:02 MCH Seg Neuts % (Manual) Lymphocytes % (Manual) Lymphocytes # (Manual) Chloride BUN Glucose POC Glucose 120 H 118 H Lactic Acid 2.80 H* Albumin 12/06/16 12/06/16 16:13 21:50 MCH Seg Neuts % (Manual) Lymphocytes % (Manual) Lymphocytes # (Manual) Chloride BUN Glucose POC Glucose 185 H 155 H Lactic Acid Albumin
[2016-12-07] MEDS: NACL 0.9% 1000 ML 1,000 ML IV SCH (13:11)
--- NOTE | 2016-12-07 14:02 | Progress Note ---
Assessment and Plan Assessment and plan: Assessment and Plan Comfortable,Doing much better 71 YO Male with HTN, CVA, Severe CAD not amenable to stent placement, AR, DM, CaP, OA presents to ED for evaluation. Pt unable to provide history, but history is taken from who is at bedside during exam and interview. Pt states that patient was outside working in the yard, when she noticed that he was sitting on the front steps with his head back. Pt went outside and found patient unconscious, with vomitus bubbling in his mouth. He admits that it was over 100 degrees Fahrenheit and that he hadn't drank much water. pneumonia was ruled out CXR shows no infiltrate, VQ scan was low probability of PE abx were dc Metabolic Encephalopathy due to syncopal event, improving Lactic acidosis likely due to Dehydration IVF, supportive care, no evidence of infection Dehydration continue IVF NSTEMI was ruled out, serial troponins negative CAD Cardiology input appreciated "Medical therapy for small vessel coronary disease of the circumflex and right coronary arteries, not amenable to a cutaneous coronary intervention or coronary bypass. In addition to consideration of cardiac ischemia or arrhythmia , the patient's syncope will need to be evaluated for possible vasovagal or neurogenic syncope." continue cardiac meds Syncope obtain Echo, carotid dopplers, Obtain orthostatic vital signs, obtain EEG to assess for seizure Hydralazine 100 mg po q8 discontinued Clonidine changed to 0.2 po q8h Hypokalemia repleted and resolved HTN urgency resume home meds and optimize them-resolved.Hydralazine 100 mg po q 8 stopped.Clonidine changed to 0.2 mg po q8hrs Type 2 NIDDM hold oral meds, give SSI while in house DVT prophylaxis lovenox The high probability of a clinically significant, sudden or life threatening deterioration of the [pulmonary, cardiac] system(s) required my full and direct attention, intervention and personal management. The aggregate critical care time was [33] minutes. This time is in addition to time spent performing reported procedures but includes the following: [x] Data Review and interpretation [x] Patient assessment and monitoring of vital signs [x] Documentation [x] Medication orders and management Disposition Plan: Probable discharge tomorrow Total Time Spent with Patient (Minutes): 35 minutes History Interval history: Doing well.No further Syncopal episodes. Hospitalist Physical - Constitutional Vitals: Temp Pulse Resp BP Pulse Ox 98.3 F 95 H 27 H 132/85 98 12/07/16 12:00 12/07/16 13:31 12/07/16 13:31 12/07/16 13:31 12/07/16 13:31 General appearance: Present: no acute distress - EENT Eyes: Present: PERRL, EOM intact ENT: hearing intact - Neck Neck: Present: supple, normal ROM - Respiratory Respiratory effort: normal Respiratory: bilateral: CTA - Cardiovascular Heart rate: 78 Rhythm: regular - Extremities Extremities: no ischemia, pulses intact, pulses symmetrical Peripheral Pulses: within normal limits - Abdominal General gastrointestinal: soft, non-tender, non-distended, normal bowel sounds - Integumentary Integumentary: Present: clear, warm, dry - Psychiatric Psychiatric: appropriate mood/affect, intact judgment & insight, memory intact, cooperative - Neurologic Neurologic: CNII-XII intact, moves all extremities, gait normal - Allied Health Allied health notes reviewed: nursing, social work, case management Results - Labs CBC & Chem 7: 12/06/16 04:09 12/06/16 04:09 Labs: Laboratory Last Values WBC 5.4 K/mm3 (4.5-11.0) 12/06/16 04:09 RBC 4.67 M/mm3 (3.65-5.03) 12/06/16 04:09 Hgb 12.8 gm/dl (11.8-15.2) 12/06/16 04:09 Hct 40.2 % (35.5-45.6) 12/06/16 04:09 MCV 86 fl (84-94) 12/06/16 04:09 MCH 27 pg (28-32) L 12/06/16 04:09 MCHC 32 % (32-34) 12/06/16 04:09 RDW 14.1 % (13.2-15.2) 12/06/16 04:09 Plt Count 215 K/mm3 (140-440) 12/06/16 04:09 Lymph % (Auto) 14.8 % (13.4-35.0) 12/05/16 11:41 [place] % (Auto) 7.5 % (0.0-7.3) H 12/05/16 11:41 Eos % (Auto) 0.9 % (0.0-4.3) 12/05/16 11:41 Baso % (Auto) 0.4 % (0.0-1.8) 12/05/16 11:41 Lymph # 1.0 K/mm3 (1.2-5.4) L 12/05/16 11:41 [place] # 0.5 K/mm3 (0.0-0.8) 12/05/16 11:41 Eos # 0.1 K/mm3 (0.0-0.4) 12/05/16 11:41 Baso # 0.0 K/mm3 (0.0-0.1) 12/05/16 11:41 Add Manual Diff Complete 12/06/16 04:09 Total Counted 100 12/06/16 04:09 Seg Neutrophils % 76.4 % (40.0-70.0) H 12/05/16 11:41 Seg Neuts % (Manual) 35.0 % (40.0-70.0) L 12/06/16 04:09 Band Neutrophils % 30.0 % 12/06/16 04:09 Lymphocytes % (Manual) 9.0 % (13.4-35.0) L 12/06/16 04:09 Reactive Lymphs % (Man) 0 % 12/06/16 04:09 Monocytes % (Manual) 3.0 % (0.0-7.3) 12/06/16 04:09 Eosinophils % (Manual) 0 % (0.0-4.3) 12/06/16 04:09 Basophils % (Manual) 0 % (0.0-1.8) 12/06/16 04:09 Metamyelocytes % 3.0 % 12/06/16 04:09 Myelocytes % 1.0 % 12/06/16 04:09 Promyelocytes % 0 % 12/06/16 04:09 Blast Cells % 0 % 12/06/16 04:09 Nucleated RBC % Not Reportable 12/06/16 04:09 Seg Neutrophils # 5.3 K/mm3 (1.8-7.7) 12/05/16 11:41 Seg Neutrophils # Man 1.9 K/mm3 (1.8-7.7) 12/06/16 04:09 Band Neutrophils # 1.6 K/mm3 12/06/16 04:09 Lymphocytes # (Manual) 0.5 K/mm3 (1.2-5.4) L 12/06/16 04:09 Abs React Lymphs (Man) 0.0 K/mm3 12/06/16 04:09 Monocytes # (Manual) 0.2 K/mm3 (0.0-0.8) 12/06/16 04:09 Eosinophils # (Manual) 0.0 K/mm3 (0.0-0.4) 12/06/16 04:09 Basophils # (Manual) 0.0 K/mm3 (0.0-0.1) 12/06/16 04:09 Metamyelocytes # 0.7 K/mm3 12/06/16 04:09 Myelocytes # 0.5 K/mm3 12/06/16 04:09 Promyelocytes # 0.0 K/mm3 12/06/16 04:09 Blast Cells # 0.0 K/mm3 12/06/16 04:09 Pathologist Review 12/06/16 04:09 WBC Morphology Not Reportable 12/06/16 04:09 Hypersegmented Neuts Not Reportable 12/06/16 04:09 Hyposegmented Neuts Not Reportable 12/06/16 04:09 Hypogranular Neuts Not Reportable 12/06/16 04:09 Smudge Cells Not Reportable 12/06/16 04:09 Toxic Granulation Not Reportable 12/06/16 04:09 Toxic Vacuolation Not Reportable 12/06/16 04:09 Dohle Bodies Not Reportable 12/06/16 04:09 Pelger-Huet Anomaly Not Reportable 12/06/16 04:09 Thaddeus Rods Not Reportable 12/06/16 04:09 Platelet Estimate Appears normal 12/06/16 04:09 Clumped Platelets Not Reportable 12/06/16 04:09 Plt Clumps, EDTA Not Reportable 12/06/16 04:09 Large Platelets Not Reportable 12/06/16 04:09 Giant Platelets Not Reportable 12/06/16 04:09 Platelet Satelliting Not Reportable 12/06/16 04:09 Plt Morphology Comment Not Reportable 12/06/16 04:09 RBC Morphology Not Reportable 12/06/16 04:09 Dimorphic RBCs Not Reportable 12/06/16 04:09 Polychromasia Not Reportable 12/06/16 04:09 Hypochromasia Not Reportable 12/06/16 04:09 Poikilocytosis Not Reportable 12/06/16 04:09 Anisocytosis Few 12/06/16 04:09 Microcytosis Not Reportable 12/06/16 04:09 Macrocytosis Not Reportable 12/06/16 04:09 Spherocytes Not Reportable 12/06/16 04:09 Pappenheimer Bodies Not Reportable 12/06/16 04:09 Sickle Cells Not Reportable 12/06/16 04:09 Target Cells Not Reportable 12/06/16 04:09 Tear Drop Cells Not Reportable 12/06/16 04:09 Ovalocytes Not Reportable 12/06/16 04:09 Helmet Cells Not Reportable 12/06/16 04:09 Fraser-[place] Bodies Not Reportable 12/06/16 04:09 [place] Rings Not Reportable 12/06/16 04:09 Britta Cells Not Reportable 12/06/16 04:09 Bite Cells Not Reportable 12/06/16 04:09 Crenated Cell Not Reportable 12/06/16 04:09 Elliptocytes Not Reportable 12/06/16 04:09 Acanthocytes (Spur) Not Reportable 12/06/16 04:09 Rouleaux Not Reportable 12/06/16 04:09 Hemoglobin C Crystals Not Reportable 12/06/16 04:09 Schistocytes Not Reportable 12/06/16 04:09 Malaria parasites Not Reportable 12/06/16 04:09 Atif Bodies Not Reportable 12/06/16 04:09 Hem Pathologist Commnt Sent to pathology 12/06/16 04:09 PT 13.4 Sec. (12.2-14.9) 12/05/16 12:08 INR 0.97 (0.87-1.13) 12/05/16 12:08 APTT < 20.0 Sec. (24.2-36.6) L 12/05/16 12:08 D-Dimer 565.35 ng/mlDDU (0-234) H 12/05/16 12:08 Sodium 139 mmol/L (137-145) 12/06/16 04:09 Potassium 4.2 mmol/L (3.6-5.0) D 12/06/16 04:09 Chloride 97.1 mmol/L (98-107) L 12/06/16 04:09 Carbon Dioxide 27 mmol/L (22-30) 12/06/16 04:09 Anion Gap 19 mmol/L 12/06/16 04:09 BUN 24 mg/dL (9-20) H 12/06/16 04:09 Creatinine 1.1 mg/dL (0.8-1.5) 12/06/16 04:09 Estimated GFR > 60 ml/min 12/06/16 04:09 BUN/Creatinine Ratio 21.81 % 12/06/16 04:09 Glucose 113 mg/dL (75-100) H 12/06/16 04:09 POC Glucose 105 (70-105) 12/07/16 07:42 Lactic Acid 2.80 mmol/L (0.7-2.0) H* 12/06/16 10:08 Calcium 9.0 mg/dL (8.4-10.2) 12/06/16 04:09 Magnesium 1.80 mg/dL (1.7-2.3) 12/05/16 11:41 Total Bilirubin 0.40 mg/dL (0.1-1.2) 12/06/16 04:09 AST 23 units/L (5-40) 12/06/16 04:09 ALT 29 units/L (7-56) 12/06/16 04:09 Alkaline Phosphatase 47 units/L (35-129) 12/06/16 04:09 Troponin T < 0.010 ng/mL (0.00-0.029) 12/06/16 10:19 Total Protein 7.2 g/dL (6.3-8.2) 12/06/16 04:09 Albumin 3.5 g/dL (3.9-5) L 12/06/16 04:09 Albumin/Globulin Ratio 0.9 % 12/06/16 04:09 TSH 2.310 mlU/mL (0.270-4.200) 12/05/16 11:41 Urine Color Yellow (Yellow) 12/05/16 12:57 Urine Turbidity Clear (Clear) 12/05/16 12:57 Urine pH 5.0 (5.0-7.0) 12/05/16 12:57 Ur Specific [place] 1.015 (1.003-1.030) 12/05/16 12:57 Urine Protein <15 mg/dl mg/dL (Negative) 12/05/16 12:57 Urine Glucose (UA) Neg mg/dL (Negative) 12/05/16 12:57 Urine Ketones Neg mg/dL (Negative) 12/05/16 12:57 Urine Blood Neg (Negative) 12/05/16 12:57 Urine Nitrite Neg (Negative) 12/05/16 12:57 Urine Bilirubin Neg (Negative) 12/05/16 12:57 Urine Urobilinogen < 2.0 mg/dL (<2.0) 12/05/16 12:57 Ur Leukocyte Esterase Neg (Negative) 12/05/16 12:57 Urine WBC (Auto) 1.0 /HPF (0.0-6.0) 12/05/16 12:57 Urine RBC (Auto) 2.0 /HPF (0.0-6.0) 12/05/16 12:57 U Epithel Cells (Auto) < 1.0 /HPF (0-13.0) 12/05/16 12:57 Hyaline Casts 3 /LPF 12/05/16 12:57 Urine Mucus Few /HPF 12/05/16 12:57 Salicylates < 0.3 mg/dL (2.8-20.0) L 12/05/16 11:41 Urine Opiates Screen Presumptive negative 12/05/16 12:57 Urine Methadone Screen Presumptive negative 12/05/16 12:57 Acetaminophen < 15.0 ug/mL (10.0-30.0) 12/05/16 11:41 Ur Barbiturates Screen Presumptive negative 12/05/16 12:57 Ur Phencyclidine Scrn Presumptive negative 12/05/16 12:57 Ur Amphetamines Screen Presumptive negative 12/05/16 12:57 U Benzodiazepines Scrn Presumptive negative 12/05/16 12:57 Urine Cocaine Screen Presumptive negative 12/05/16 12:57 U Marijuana (THC) Screen Presumptive negative 12/05/16 12:57 Drugs of Abuse Note Disclamer 12/05/16 12:57 Plasma/Serum Alcohol < 0.01 gm% (0-0.07) 12/05/16 11:41
[2016-12-07] MEDS: LUMIGAN 0.01% OP SCH (23:25)
--- NOTE | 2016-12-07 23:42 | Progress Note ---
Assessment and Plan 1. Syncope likely secondary to dehydration improving 2. CAD small vessel coronary disease of the circumflex and right coronary arteries, not amenable to a cutaneous coronary intervention or coronary bypass on medical therapy no anginal symptoms currently 3. HTN well controlled 4. Hypokalemia resolved Plan Continue medical therapy with ASA, BB, statin, and ARB 2D echo shows normal EF If patient has anginal symptoms add Ranexa Subjective Date of service: 12/08/16 Principal diagnosis: syncope Interval history: No acute events. Resting comfortably. No chest pain or SOB. Objective Vital Signs Temp Pulse Pulse Pulse Pulse Pulse Resp 12/07/16 23:00 99.1 F 92 H 92 H 92 H 92 H 12/07/16 22:19 92 H 12/07/16 20:32 12/07/16 17:00 98.6 F 85 12/07/16 16:21 86 12/07/16 16:11 85 12/07/16 16:00 98.3 F 85 12/07/16 15:51 93 H 25 H 12/07/16 15:41 89 12/07/16 15:31 87 12/07/16 15:22 93 H 12/07/16 15:21 89 12/07/16 15:11 91 H 18 12/07/16 15:00 90 12/07/16 14:51 92 H 12/07/16 14:41 92 H 12/07/16 14:30 92 H 12/07/16 14:21 91 H 12/07/16 14:11 93 H 20 12/07/16 14:00 98 H 25 H 12/07/16 13:51 95 H 18 12/07/16 13:41 96 H 24 12/07/16 13:31 95 H 27 H 12/07/16 13:21 96 H 26 H 12/07/16 13:11 97 H 28 H 12/07/16 13:00 100 H 27 H 12/07/16 12:51 93 H 24 12/07/16 12:41 96 H 23 12/07/16 12:31 88 12/07/16 12:21 84 12/07/16 12:11 91 H 19 12/07/16 12:00 98.3 F 88 12/07/16 11:51 90 12/07/16 11:41 94 H 26 H 12/07/16 11:35 25 H 12/07/16 11:31 95 H 28 H 12/07/16 11:21 97 H 16 12/07/16 11:11 100 H 17 12/07/16 11:00 99 H 15 12/07/16 10:51 98 H 23 12/07/16 10:41 96 H 17 12/07/16 10:31 97 H 17 12/07/16 10:21 96 H 18 12/07/16 10:11 101 H 26 H 12/07/16 10:06 107 H 12/07/16 10:05 107 H 12/07/16 10:03 107 H 12/07/16 10:02 108 H 12/07/16 10:00 107 H 32 H 12/07/16 09:51 105 H 12/07/16 09:41 96 H 17 12/07/16 09:31 101 H 12/07/16 09:21 100 H 18 12/07/16 09:11 103 H 12/07/16 09:00 106 H 24 12/07/16 08:50 103 H 25 H 12/07/16 08:41 102 H 28 H 12/07/16 08:31 107 H 26 H 12/07/16 08:21 98 H 25 H 12/07/16 08:11 99 H 28 H 12/07/16 08:00 98.7 F 98 H 26 H 12/07/16 07:51 97 H 12/07/16 07:41 99 H 26 H 12/07/16 07:40 26 H 12/07/16 07:31 100 H 12/07/16 07:21 100 H 12/07/16 07:11 92 H 12/07/16 07:00 104 H 26 H 12/07/16 06:51 111 H 31 H 12/07/16 06:41 106 H 29 H 12/07/16 06:31 97 H 17 12/07/16 06:21 100 H 15 12/07/16 06:11 97 H 16 12/07/16 06:00 100 H 22 12/07/16 05:51 96 H 12/07/16 05:41 95 H 26 H 12/07/16 05:31 97 H 12/07/16 05:21 97 H 25 H 12/07/16 05:11 97 H 24 12/07/16 05:00 93 H 21 12/07/16 04:51 98 H 25 H 12/07/16 04:41 99 H 24 12/07/16 04:31 100 H 17 12/07/16 04:21 98 H 18 12/07/16 04:11 99 H 19 12/07/16 04:00 98 H 22 12/07/16 03:51 100 H 17 12/07/16 03:41 100 H 18 12/07/16 03:31 101 H 17 12/07/16 03:26 100.3 F H 12/07/16 03:21 102 H 18 12/07/16 03:11 102 H 18 12/07/16 03:00 103 H 16 12/07/16 02:51 109 H 18 12/07/16 02:41 103 H 18 12/07/16 02:31 100 H 25 H 12/07/16 02:21 98 H 20 12/07/16 02:11 100 H 20 12/07/16 02:00 102 H 28 H 12/07/16 01:51 100 H 22 12/07/16 01:41 104 H 26 H 12/07/16 01:31 95 H 19 12/07/16 01:21 97 H 17 12/07/16 01:11 97 H 18 12/07/16 01:00 90 21 12/07/16 00:51 100 H 19 12/07/16 00:41 97 H 19 12/07/16 00:31 91 H 23 12/07/16 00:21 97 H 17 12/07/16 00:11 95 H 17 12/07/16 00:00 95 H 111 H 111 H 29 H 12/06/16 23:51 97 H 28 H 12/06/16 23:46 99.9 F H BP BP Pulse Ox 12/07/16 23:00 132/73 12/07/16 22:19 132/73 12/07/16 20:32 98 12/07/16 17:00 118/71 97 12/07/16 16:21 130/76 100 12/07/16 16:11 130/76 98 12/07/16 16:00 130/76 98 12/07/16 15:51 115/73 99 12/07/16 15:41 115/73 99 12/07/16 15:31 115/73 99 12/07/16 15:22 115/73 12/07/16 15:21 115/73 100 12/07/16 15:11 115/73 99 12/07/16 15:00 115/73 99 12/07/16 14:51 120/71 99 12/07/16 14:41 120/71 99 12/07/16 14:30 120/71 99 12/07/16 14:21 132/85 99 12/07/16 14:11 132/85 99 12/07/16 14:00 120/71 99 12/07/16 13:51 132/85 98 12/07/16 13:41 132/85 98 12/07/16 13:31 132/85 98 12/07/16 13:21 132/85 98 12/07/16 13:11 132/85 99 12/07/16 13:00 132/85 97 12/07/16 12:51 132/75 97 12/07/16 12:41 132/75 97 12/07/16 12:31 132/75 97 12/07/16 12:21 132/75 100 12/07/16 12:11 132/75 100 12/07/16 12:00 132/75 99 12/07/16 11:51 114/70 99 12/07/16 11:41 114/70 99 12/07/16 11:35 100 12/07/16 11:31 114/70 98 12/07/16 11:21 114/70 99 12/07/16 11:11 114/70 99 12/07/16 11:00 114/70 99 12/07/16 10:51 137/89 99 12/07/16 10:41 137/89 99 12/07/16 10:31 137/89 99 12/07/16 10:21 137/89 99 12/07/16 10:11 137/89 98 12/07/16 10:06 130/77 12/07/16 10:05 130/77 12/07/16 10:03 130/77 12/07/16 10:02 130/77 12/07/16 10:00 137/89 99 12/07/16 09:51 130/77 100 12/07/16 09:41 130/77 98 12/07/16 09:31 130/77 99 0708 09:21 130/77 99 0708 09:11 130/77 99 12/07/16 09:00 130/77 98 07 08:50 133/77 98 12/07/16 08:41 133/77 96 07 08:31 133/77 98 07 08:21 133/77 98 12/07/16 08:11 133/77 97 12/07/16 08:00 133/77 97 12/07/16 07:51 134/81 98 07 07:41 134/81 98 07 07:40 98 08 07:31 134/81 98 12/07/16 07:21 134/81 97 12/07/16 07:11 134/81 97 12/07/16 07:00 134/81 98 12/07/16 06:51 125/83 96 0708 06:41 125/83 96 12/07/16 06:31 125/83 96 12/07/16 06:21 125/83 96 12/07/16 06:11 125/83 96 12/07/16 06:00 125/83 98 08 05:51 131/75 97 08 05:41 131/75 97 08 05:31 131/75 98 12/07/16 05:21 131/75 96 08 05:11 131/75 96 0708 05:00 131/75 96 12/07/16 04:51 113/66 96 0708 04:41 113/66 96 12/07/16 04:31 113/66 97 0708 04:21 113/66 97 12/07/16 04:11 113/66 97 08 04:00 113/66 97 12/07/16 03:51 107/69 98 0708 03:41 107/69 98 12/07/16 03:31 107/69 98 0708 03:26 07 03:21 107/69 97 0708 03:11 107/69 98 08 03:00 107/69 98 07/08/17 02:51 132/84 96 12/07/16 02:41 132/84 97 12/07/16 02:31 132/84 99 12/07/16 02:21 132/84 98 12/07/16 02:11 132/84 98 12/07/16 02:00 132/84 96 12/07/16 01:51 130/74 98 12/07/16 01:41 130/74 96 12/07/16 01:31 130/74 99 12/07/16 01:21 130/74 99 12/07/16 01:11 130/74 98 12/07/16 01:00 130/74 99 12/07/16 00:51 134/77 99 12/07/16 00:41 134/77 99 12/07/16 00:31 134/77 99 12/07/16 00:21 134/77 99 12/07/16 00:11 134/77 99 12/07/16 00:00 134/77 99 12/06/16 23:51 125/73 99 12/06/16 23:46 - Physical Examination HEENT: Positive: PERRL Neck: Positive: trachea midline
[2016-12-08 05:20] LABS: Basophils % (Auto) 0.2 % (0.0-1.8); Eosinophils % (Auto) 1.2 % (0.0-4.3); Hemoglobin 10.2 gm/dl (11.8-15.2); Mean Corpuscular HGB Conc 33 % (32-34); Mean Corpuscular Hemoglobin 28 pg (28-32); Mean Corpuscular Volume 85 fl (84-94); Platelet Count 139 K/mm3 (140-440); Red Blood Count 3.65 M/mm3 (3.65-5.03); White Blood Count 10.3 K/mm3 (4.5-11.0)
[2016-12-08 05:23] LABS: Alanine Aminotransferase 60 units/L (7-56); Albumin 2.5 g/dL (3.9-5); Albumin/Globulin Ratio 0.7 %; Alkaline Phosphatase 58 units/L (35-129); Anion Gap 15 mmol/L; Blood Urea Nitrogen 21 mg/dL (9-20); Calcium 8.4 mg/dL (8.4-10.2); Carbon Dioxide 24 mmol/L (22-30); Chloride 103.6 mmol/L (98-107); Glucose 148 mg/dL (75-100); Sodium 139 mmol/L (137-145); Total Protein 6.3 g/dL (6.3-8.2)
[2016-12-08] MEDS: NACL 0.9% 1000 ML 1,000 ML IV SCH (06:09)
[2016-12-08] MEDS: CATAPRES PO SCH ×3 (06:16→22:30)
[2016-12-08] MEDS: HEPARIN SUB-Q SCH ×3 (06:18→22:32)
[2016-12-08] MEDS: NOVOLOG SUB-Q SCH ×4 (07:57→22:29)
--- NOTE | 2016-12-08 11:25 | Progress Note ---
Assessment and Plan 71 y/o male with syncopal event, possible heat exhaustion. 1. Will repeat CXR given complaints from , not patient 2. Ok with ambulation, should start with O2 on first and then attempt to wean off 3. BP control. Subjective Date of service: 12/08/16 Principal diagnosis: syncope Interval history: Transitioned to the floor. and another individual at the bedside. Per , when attempted to wean off oxygen started wheezing. No history of COPD. Sats are good on 2 liters. Remainder is negative. Objective Vital Signs - 12hr 12/08/16 12/08/16 12/08/16 06:00 06:16 08:56 Temperature 99.4 F Pulse Rate 86 Pulse Rate [ 82 Left Dorsalis Pedis] Pulse Rate [ 86 Left Radial] Pulse Rate [ 80 Right Dorsalis Pedis] Pulse Rate [ 85 Right Radial] Respiratory 18 Rate Blood Pressure 150/80 Blood Pressure 150/80 [Right Arm] O2 Sat by Pulse 99 98 Oximetry Constitutional: no acute distress, alert Eyes: non-icteric ENT: oropharynx dry Neck: supple Effort: mildly labored Ascultation: Bilateral: clear Percussion: Bilateral: not dull Tactile fremitus: Bilateral: normal Cardiovascular: regular rate and rhythm Gastrointestinal: normoactive bowel sounds, soft, non-tender Integumentary: normal Extremities: pink and warm Neurologic: normal mental status, non-focal exam Psychiatric: mood appropriate, affect normal CBC and BMP: 12/08/16 04:41 12/08/16 Unknown ABG, PT/INR, D-dimer: PT/INR, D-dimer PT 13.4 Sec. (12.2-14.9) 12/05/16 12:08 INR 0.97 (0.87-1.13) 12/05/16 12:08 D-Dimer 565.35 ng/mlDDU (0-234) H 12/05/16 12:08 Abnormal lab findings: Abnormal Labs 12/05/16 12/06/16 12/06/16 21:26 04:09 04:09 Hgb Hct MCH 27 L Plt Count Lymph % (Auto) Lymph # Seg Neutrophils % Seg Neuts % (Manual) 35.0 L Lymphocytes % (Manual) 9.0 L Seg Neutrophils # Lymphocytes # (Manual) 0.5 L Chloride 97.1 L BUN 24 H Glucose 113 H POC Glucose Lactic Acid 3.70 H* ALT Albumin 3.5 L 12/06/16 12/06/16 12/06/16 07:07 10:08 12:02 Hgb Hct MCH Plt Count Lymph % (Auto) Lymph # Seg Neutrophils % Seg Neuts % (Manual) Lymphocytes % (Manual) Seg Neutrophils # Lymphocytes # (Manual) Chloride BUN Glucose POC Glucose 120 H 118 H Lactic Acid 2.80 H* ALT Albumin 12/06/16 12/06/16 12/07/16 16:13 21:50 11:35 Hgb Hct MCH Plt Count Lymph % (Auto) Lymph # Seg Neutrophils % Seg Neuts % (Manual) Lymphocytes % (Manual) Seg Neutrophils # Lymphocytes # (Manual) Chloride BUN Glucose POC Glucose 185 H 155 H 118 H Lactic Acid ALT Albumin 12/07/16 12/07/16 12/08/16 16:28 21:46 04:41 Hgb 10.2 L Hct 31.0 L D MCH Plt Count 139 L Lymph % (Auto) 5.0 L Lymph # 0.5 L Seg Neutrophils % 89.7 H Seg Neuts % (Manual) Lymphocytes % (Manual) Seg Neutrophils # 9.2 H Lymphocytes # (Manual) Chloride BUN Glucose POC Glucose 203 H 152 H Lactic Acid ALT Albumin 12/08/16 12/08/16 05:19 Unknown Hgb Hct MCH Plt Count Lymph % (Auto) Lymph # Seg Neutrophils % Seg Neuts % (Manual) Lymphocytes % (Manual) Seg Neutrophils # Lymphocytes # (Manual) Chloride BUN 21 H Glucose 148 H POC Glucose 133 H Lactic Acid ALT 60 H Albumin 2.5 L
[2016-12-08] MEDS: NORVASC PO SCH (11:32)
[2016-12-08] MEDS: PLAVIX PO SCH (11:32)
[2016-12-08] MEDS: TOPROL XL PO SCH (11:33)
[2016-12-08] MEDS: COZAAR PO SCH (11:33)
[2016-12-08] MEDS: HALFPRIN EC PO SCH (11:34)
[2016-12-08] MEDS: FLOMAX PO SCH (11:34)
[2016-12-08] MEDS: NON-FORMULARY (Brimonidine Tartrate [Alphagan P 0.1%] 1 DROP) INTRAOCULA SCH ×2 (11:43→22:31)
--- NOTE | 2016-12-08 13:06 | XRay Report ---
CHEST TWO VIEWS: 12/08/16 CLINICAL: Dyspnea. COMPARISON: 12/05/16 FINDINGS: The heart is normal size. congestion. Interval development of central vascular congestion and bilateral perihilar reticular interstitial opacities. No pulmonary consolidation.The bones and soft tissues are normal. IMPRESSION: Interval development of bilateral perihilar interstitial pulmonary edemaversus pneumonia.
--- NOTE | 2016-12-08 15:29 | Progress Note ---
Assessment and Plan Assessment and Plan Comfortable,Doing much better 71 YO Male with HTN, CVA, Severe CAD not amenable to stent placement, [place], DM, CaP, OA presents to ED for evaluation. Pt unable to provide history, but history is taken from who is at bedside during exam and interview. Pt states that patient was outside working in the yard, when she noticed that he was sitting on the front steps with his head back. Pt went outside and found patient unconscious, with vomitus bubbling in his mouth. He admits that it was over 100 degrees Fahrenheit and that he hadn't drank much water. pneumonia was ruled out CXR shows no infiltrate, VQ scan was low probability of PE abx were dc Metabolic Encephalopathy due to syncopal event, improving Lactic acidosis likely due to Dehydration IVF, supportive care, no evidence of infection Dehydration continue IVF NSTEMI was ruled out, serial troponins negative CAD "Medical therapy for small vessel coronary disease of the circumflex and right coronary arteries, not amenable to a cutaneous coronary intervention or coronary bypass. In addition to consideration of cardiac ischemia or arrhythmia , the patient's syncope will need to be evaluated for possible vasovagal or neurogenic syncope." Patient probaly overmedicated with Anti huypertensives,Hydralazine stopped. Syncope obtain Echo, carotid dopplers, Obtain orthostatic vital signs, obtain EEG to assess for seizure Hydralazine 100 mg po q8 discontinued Clonidine changed to 0.2 po q8h Hypokalemia repleted and resolved HTN urgency resume home meds and optimize them-resolved.Hydralazine 100 mg po q 8 stopped.Clonidine changed to 0.2 mg po q8hrs Type 2 NIDDM hold oral meds, give SSI while in house DVT prophylaxis lovenox Subjective Date of service: 12/08/16 Principal diagnosis: syncope Interval history: Doing well.No further Syncopal episodes. Objective - Exam Narrative Exam: Comfortable and talking with family at bedside. - Constitutional Vitals: Vital Signs - 12hr 12/08/16 12/08/16 12/08/16 06:00 06:16 08:05 Temperature 99.4 F 99.0 F Pulse Rate 86 Pulse Rate [ 82 76 Left Dorsalis Pedis] Pulse Rate [ 86 76 Left Radial] Pulse Rate [ 80 76 Right Dorsalis Pedis] Pulse Rate [ 85 76 Right Radial] Respiratory 18 20 Rate Blood Pressure 150/80 Blood Pressure 150/80 122/68 [Right Arm] O2 Sat by Pulse 99 Oximetry 12/08/16 12/08/16 12/08/16 08:56 11:32 11:33 Temperature Pulse Rate Pulse Rate [ Left Dorsalis Pedis] Pulse Rate [ Left Radial] Pulse Rate [ Right Dorsalis Pedis] Pulse Rate [ Right Radial] Respiratory Rate Blood Pressure 140/80 140/80 Blood Pressure [Right Arm] O2 Sat by Pulse 98 Oximetry General appearance: Present: no acute distress, well-nourished - EENT Eyes: PERRL, EOM intact ENT: hearing intact, clear oral mucosa Ears: bilateral: normal - Neck Neck: supple, normal ROM - Respiratory Respiratory effort: normal Respiratory: bilateral: CTA - Breasts Breasts: normal - Cardiovascular Rhythm: regular Heart Sounds: Present: S1 & S2. Absent: gallop, rub Extremities: pulses intact, No edema, normal color, Full ROM - Gastrointestinal General gastrointestinal: Present: soft, non-tender, non-distended, normal bowel sounds - Genitourinary Male genitourinary: normal - Integumentary Integumentary: clear, warm, dry - Musculoskeletal Musculoskeletal: 1, strength equal bilaterally - Neurologic Neurologic: moves all extremities - Psychiatric Psychiatric: memory intact, appropriate mood/affect, intact judgment & insight - Labs CBC & Chem 7: 12/08/16 04:41 12/08/16 Unknown Labs: Abnormal lab results 12/07/16 12/07/16 12/08/16 Range/Units 16:28 21:46 04:41 Hgb 10.2 L (11.8-15.2) gm/dl Hct 31.0 L D (35.5-45.6) % Plt Count 139 L (140-440) K/mm3 Lymph % (Auto) 5.0 L (13.4-35.0) % Lymph # 0.5 L (1.2-5.4) K/mm3 Seg Neutrophils % 89.7 H (40.0-70.0) % Seg Neutrophils # 9.2 H (1.8-7.7) K/mm3 BUN (9-20) mg/dL Glucose (75-100) mg/dL POC Glucose 203 H 152 H (70-105) ALT (7-56) units/L Albumin (3.9-5) g/dL 12/08/16 12/08/16 12/08/16 Range/Units 05:19 11:35 Unknown Hgb (11.8-15.2) gm/dl Hct (35.5-45.6) % Plt Count (140-440) K/mm3 Lymph % (Auto) (13.4-35.0) % Lymph # (1.2-5.4) K/mm3 Seg Neutrophils % (40.0-70.0) % Seg Neutrophils # (1.8-7.7) K/mm3 BUN 21 H (9-20) mg/dL Glucose 148 H (75-100) mg/dL POC Glucose 133 H 147 H (70-105) ALT 60 H (7-56) units/L Albumin 2.5 L (3.9-5) g/dL
[2016-12-08] MEDS: LUMIGAN 0.01% OP SCH (22:32)
[2016-12-09] MEDS: CATAPRES PO SCH ×2 (05:32→14:19)
[2016-12-09] MEDS: HEPARIN SUB-Q SCH ×2 (05:32→14:19)
[2016-12-09 06:01] LABS: Basophils % (Auto) 0.2 % (0.0-1.8); Eosinophils % (Auto) 2.8 % (0.0-4.3); Hematocrit 31.9 % (35.5-45.6); Hemoglobin 10.4 gm/dl (11.8-15.2); Mean Corpuscular HGB Conc 33 % (32-34); Mean Corpuscular Hemoglobin 28 pg (28-32); Mean Corpuscular Volume 84 fl (84-94); Platelet Count 158 K/mm3 (140-440); Red Blood Count 3.79 M/mm3 (3.65-5.03)
[2016-12-09 06:19] LABS: Anion Gap 15 mmol/L; BUN/Creatinine Ratio 21.11; Blood Urea Nitrogen 19 mg/dL (9-20); Calcium 8.6 mg/dL (8.4-10.2); Carbon Dioxide 25 mmol/L (22-30); Chloride 101.1 mmol/L (98-107); Glucose 145 mg/dL (75-100); Potassium 3.3 mmol/L (3.6-5.0); Sodium 138 mmol/L (137-145)
[2016-12-09] MEDS: NOVOLOG SUB-Q SCH ×3 (07:59→19:03)
[2016-12-09] MEDS: HALFPRIN EC PO SCH (10:09)
[2016-12-09] MEDS: TOPROL XL PO SCH (10:10)
[2016-12-09] MEDS: FLOMAX PO SCH (10:10)
[2016-12-09] MEDS: COZAAR PO SCH (10:10)
[2016-12-09] MEDS: PLAVIX PO SCH (10:11)
[2016-12-09] MEDS: NORVASC PO SCH (10:11)
[2016-12-09] MEDS: NON-FORMULARY (Brimonidine Tartrate [Alphagan P 0.1%] 1 DROP) INTRAOCULA SCH (10:12)
--- NOTE | 2016-12-09 11:40 | Progress Note ---
Assessment and Plan - Patient Problems (1) Coronary artery disease Current Visit: Yes Status: Acute Qualifiers: Coronary Disease-Associated Artery/Lesion type: C [place] vs. transplanted heart: N Associated angina: A Plan to address problem: The patient will be continued on optimal medical therapy for small vessel disease of the distal right coronary and distal circumflex systems. Cardiac status is stable and asymptomatic. Subjective Date of service: 12/09/16 Principal diagnosis: syncope Interval history: Patient is comfortable, no acute distress. There is no chest pain, no shortness of breath, no cardiac complaints. Objective Vital Signs Temp Pulse Pulse Pulse Pulse Pulse Pulse 12/09/16 10:10 80 12/09/16 08:16 100.0 F H 80 80 80 80 80 12/09/16 08:10 12/09/16 04:00 99.7 F H 88 88 88 88 88 12/08/16 23:00 98.6 F 87 87 87 87 87 12/08/16 22:36 12/08/16 22:30 89 12/08/16 22:00 12/08/16 16:20 98.6 F 89 89 89 89 89 12/08/16 16:06 Resp Resp BP BP Pulse Ox 12/09/16 10:10 141/80 12/09/16 08:16 24 141/80 94 12/09/16 08:10 96 12/09/16 04:00 16 166/86 96 12/08/16 23:00 16 152/80 100 12/08/16 22:36 97 12/08/16 22:30 170/101 12/08/16 22:00 18 98 12/08/16 16:20 24 177/99 98 12/08/16 16:06 177/99 - Physical Examination General: No Apparent Distress HEENT: Positive: PERRL Neck: Positive: trachea midline Cardiac: Positive: Reg Rate and Rhythm Lungs: Positive: Decreased Breath Sounds Neuro: Positive: Grossly Intact Abdomen: Positive: Soft Skin: Positive: Clear Extremities: Absent: edema - Labs and Meds CBC 12/09/16 Range/Units 05:21 WBC 7.0 (4.5-11.0) K/mm3 RBC 3.79 (3.65-5.03) M/mm3 Hgb 10.4 L (11.8-15.2) gm/dl Hct 31.9 L (35.5-45.6) % Plt Count 158 (140-440) K/mm3 Lymph # 0.5 L (1.2-5.4) K/mm3 [place] # 0.6 (0.0-0.8) K/mm3 Eos # 0.2 (0.0-0.4) K/mm3 Baso # 0.0 (0.0-0.1) K/mm3 Comprehensive Metabolic Panel 12/09/16 Range/Units 05:21 Sodium 138 (137-145) mmol/L Potassium 3.3 L (3.6-5.0) mmol/L Chloride 101.1 (98-107) mmol/L Carbon Dioxide 25 (22-30) mmol/L BUN 19 (9-20) mg/dL Creatinine 0.9 (0.8-1.5) mg/dL Glucose 145 H (75-100) mg/dL Calcium 8.6 (8.4-10.2) mg/dL
--- NOTE | 2016-12-09 13:30 | Discharge Summary ---
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 Pt unable to provide history, but history is taken from who is at bedside during exam and interview. Pt states that patient was outside working in the yard, when she noticed that he was sitting on the front steps with his head back. Pt went outside and found patient unconscious, with vomitus bubbling in his mouth. He admits that it was over 100 degrees Fahrenheit and that he hadn't drank much water. pneumonia was ruled out, he also had a VQ scan is low probability of PE. He was found to be dehydrated, he received IV fluids, it was thought that he was on too many blood pressure medications, as he is on 2 types of medications of the same class. His cardiac medications were optimized. He was in conjunction with cardiology. Recommended continued medical management, he received sliding scale insulin while in hospital, and his potassium levels were repleted as they were low. He was advised to avoid being out in the heat and to keep cool and hydrated. Discharge diagnoses Metabolic Encephalopathy Lactic acidosis likely due to Dehydration Dehydration Autonomic imbalance CAD- chronic and stable Syncope Hypokalemia HTN urgency Type 2 NIDDM Disposition: DC-01 TO HOME OR SELFCARE Time spent for discharge: 32 minutes Core Measure Documentation - Palliative Care Palliative Care/ Comfort Measures: Not Applicable - Core Measures Any of the following diagnoses?: none Exam - Constitutional Vitals: Temp Pulse Resp BP Pulse Ox 98.5 F 84 20 156/82 97 12/09/16 12:08 12/09/16 12:08 12/09/16 12:08 12/09/16 12:08 12/09/16 12:08 General appearance: Present: no acute distress, well-nourished - EENT Eyes: Present: PERRL ENT: hearing intact, clear oral mucosa - Neck Neck: Present: supple, normal ROM - Respiratory Respiratory effort: normal Respiratory: bilateral: CTA - Cardiovascular Heart Sounds: Present: S1 & S2. Absent: rub, click - Extremities Extremities: pulses symmetrical, No edema Peripheral Pulses: within normal limits - Abdominal General gastrointestinal: Present: soft, non-tender, non-distended, normal bowel sounds Male genitourinary: Present: normal - Integumentary Integumentary: Present: clear, warm, dry - Musculoskeletal Musculoskeletal: gait normal, strength equal bilaterally - Psychiatric Psychiatric: appropriate mood/affect, intact judgment & insight - Neurologic Neurologic: CNII-XII intact, moves all extremities Plan Follow up with: IZAEBL SANCHEZ MD [Primary Care Provider] - 3-5 Days KALPESH MIRANDA MD [Staff Physician] - 7 Days Prescriptions: Metoprolol Xl [Metoprolol SUCCINATE ER TAB] 50 mg PO DAILY #60 tablet
[2016-12-09 17:07] VITALS: BP 169/85
--- NOTE | 2016-12-11 10:22 | Vascular Lab Report ---
CAROTID DUPLEX STUDY: RIGHT PSVEDV CCA PROX:[id number] CCA DIST: 9422 ICA PROX:6917 ICA MID: 7926 ICA DIST: 9526 ECA: 92 8 VERT: 79 23 LEFT PSVEDV CCA PROX: 9517 CCA DIST: 7817 ICA PROX: 9621 ICA MID: 9826 ICA DIST: 6724 ECA: [id number] VERT: 20 7 REASON FOR EXAM: Carotid artery stenosis/syncope. COMMENTS ON THE RIGHT: Doppler frequency analysis is consistent with 16 to 49 percent diameter reduction of the internal carotid artery. Minimal amount of plaque is seen. The common carotid artery is patent. The external carotid artery is patent. The vertebral artery has antegrade flow. COMMENTS ON THE LEFT: Doppler frequency analysis is consistent with 16 to 49 percent diameter reduction of the internal carotid artery. Minimal amount of plaque is seen. The common carotid artery is patent. The external carotid artery is patent. The vertebral artery has antegrade flow. IMPRESSION: Less than 50% diameter reduction in the internal carotid arteries bilaterally. Consider repeat carotid artery duplex in 12 months.
== END 2016-12-09 18:00 | disposition home or self-care (01) | DRG 640 ==
LOC: ED 11:18 → CC1 15:02 → 3A 12-07 16:51
PROVIDERS: ADMIT Internal Medicine; ATTEND Internal Medicine
DX: E86.0 Dehydration (principal); G93.41 Metabolic encephalopathy; E87.2 Acidosis; E87.5 Hyperkalemia; I16.0 Hypertensive urgency; E11.51 Type 2 diabetes mellitus with diabetic peripheral angiopathy without gangrene; I25.10 Atherosclerotic heart disease of native coronary artery without angina pectoris; I10 Essential (primary) hypertension; M19.90 Unspecified osteoarthritis, unspecified site; Z85.46 Personal history of malignant neoplasm of prostate; I25.2 Old myocardial infarction; Z92.21 Personal history of antineoplastic chemotherapy; Z88.8 Allergy status to other drugs, medicaments and biological substances; Z79.82 Long term (current) use of aspirin; Z79.899 Other long term (current) drug therapy; Z86.73 Personal history of transient ischemic attack (TIA), and cerebral infarction without residual deficits; Z82.49 Family history of ischemic heart disease and other diseases of the circulatory system
CPT/HCPCS: 36415; 71010; 71020; 78582; 80048; 80053; 80307; 80320; 81001; 82140; 82962; 83735; 84443; 84484; 85007; 85025; 85379; 85610; 85730; 93005; 93010; 93306; 93880; 94760; 95819; 96365; 96366; 96372; 99291; A9270-GY; A9540; A9558; G0480; J1644; J1650; J1815; J2543; J3370; J7030; J7050